=== PATIENT | female | born 2000 | race Two or more races ===

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

== ENCOUNTER → 2018-12-03 | Outpatient (CLI) | payer BC, OTHER ==
[2018-12-03 05:11] LABS: Appearance,Urine Clear (Clear); Bilirubin,Urine Negative (Negative); Blood,Urine Negative (Negative); Color,Urine Light Yellow; Glucose,Urine (UA) Negative (Negative); Ketones,Urine Negative (Negative); Leukocyte Esterase,Urine Negative (Negative); Nitrite,Urine Negative (Negative); PH, Urine 6.5 (5.0-8.0); Protein,Urine Negative (Negative); Specific Gravity,Urine 1.004 (1.001-1.035); Urobilinogen,Urine <2.0 mg/dL (<2.0)
[2018-12-03 06:51] VITALS: BP 126/74; PULSE 113; RESP 16; TEMP 98.1
--- NOTE | 2018-12-13 03:53 | P.MSEPDOC ---
Presenting Problems - Arrival Data Date of Arrival on Unit: 12/03/18 Time of Arrival on Unit: 04:25 Mode of Transport: Ambulatory - Complaint OB-Reason for Admission/Chief Complaint: Pain Comment: Patient states she was awoken at 0200 with intermittent pain, 10/10, bilaterally on her back. By the time she arrived in triage it was mild constant pain on her right lower back. Patient denies bleeding, leaking of fluid, and states she can feel move. Medical History - Information : 2 Para: 1 Term: 0 : 0 Abortions: Spontaneous or Elective: 0 Number of Living Children: 1 - Gestational Age Gestational Age by MADDI (wks/days): 25 Weeks and 3 Days Review of Systems - Review of Systems Constitutional: No problems Breast: No problems ENT: No problems Cardiovascular: No problems Respiratory: No problems Gastrointestinal: No problems Genitourinary: No problems Musculoskeletal: No problems Neurological: No problems Skin: No problems Vital Signs - Temperature Temperature: 98.1 F Temperature Source: Temporal Artery Scan - Pulse Right Brachial Pulse Rate: 113 Pulse Assessment Method: Automatic Cuff - Respirations Respiratory Rate: 16 Oxygen Delivery Method: Room Air - Blood Pressure Right Arm Blood Pressure: 126/74 Blood Pressure Mean: 91 Blood Pressure Source: Automatic Cuff Medical Screen Scoring (Pre) - Cervical Exam Dilation: Exam Deferred Effacement: Exam Deferred - Uterine Contractions Frequency: N/A Duration: N/A Intensity: N/A - Maternal Vital Signs Maternal Temperature: N/A Signs of Preeclampsia: N/A Maternal Respirations: N/A - Maternal Trauma Maternal Trauma: N/A - Assessment - Baby A Baseline FHR: 130 Heart Rate - NICHD Category: Category I (Normal) = 0 Position: N/A Station: N/A - Total Score - Baby A Total Score - Baby A: 0 - Total Score - Baby B Total Score - Baby B: 0 - Total Score - Baby C Total Score - Baby C: 0 - Level of Risk - Baby A Level of Risk - Baby A: Low (0-5) - Level of Risk - Baby B Level of Risk - Baby B: Low (0-5) - Level of Risk - Baby C Level of Risk - Baby C: Low (0-5) Physician Notification (Pre) - Physician Notified Physician Notified Date: 12/03/18 Physician Notified Time: 04:45 Physician/Practitioner Notifed:: Dr. Salomon Spoke With: Dr. Salomon New Order Received: Yes - Notification Comment Comment: RN reported reactive infant, 25 weeks 3 days, no contractions noted on the monitor. Urine appeared to have sediment in it. Dr. Salomon states to send UA and call back with results. Urine results were not significant. Order to discharge patient with instructions for patient to see this week. Patient states she is feeling much better and is in agreement with plan. Disposition - Disposition OB Disposition: Physician follow up in office, Discharge to home Discharge Date: 12/03/18 Discharge Time: 06:30 I agree with the RN Medical Screening Exam: Yes Risk & Benefit of care provided described in d/c instruction: Yes Diagnosis: LOW BACK PAIN
== END ==
LOC: FBPOP 04:25
PROVIDERS: ATTEND Obstetrics & Gynecology
DX: O99.89 Other specified diseases and conditions complicating pregnancy, childbirth and the puerperium (principal); M54.5 Low back pain; Z3A.25 25 weeks gestation of pregnancy
CPT/HCPCS: 81003

== ENCOUNTER 2019-03-25 07:18 | Emergency (ER) | payer BC, OTHER ==
[2019-03-25 07:28] VITALS: TEMP 97.9
[2019-03-25] MEDS ORDERED: SODIUM CHLORIDE 0.9% 500 ML 500 ML IV STA (07:40)
[2019-03-25] MEDS ORDERED: ONDANSETRON 4 MG/2 ML VIAL IVP STA (07:40)
[2019-03-25] MEDS ORDERED: SODIUM CHLORIDE 0.9% 1,000 ML IV STA (07:40)
[2019-03-25] MEDS ORDERED: HYDROmorphone 1 MG/ML 1 ML SYRINGE IVP STA (07:40)
[2019-03-25] MEDS ORDERED: FAMOTIDINE 20 MG/2 ML VIAL IV STA (07:41)
--- NOTE | 2019-03-25 07:49 | ED ---
General Adult HPI - General Chief complaint: Abdominal Pain Stated complaint: Rib pain/RADHA post 2 wks ago Time Seen by Provider: 03/25/19 07:29 Source: patient, RN notes reviewed Mode of arrival: wheelchair Limitations: no limitations - History of Present Illness Initial comments: Patient is a pleasant 19-year-old female presenting to the emergency Department with chest and abdominal discomfort as well as nausea and vomiting. Onset of symptoms was 3 AM. Patient has vomited 3 times. Patient still feels nauseous. Discomfort is bilateral lower ribs and epigastric region. No history of similar symptoms previously. Patient is approximately 2 weeks post out of the [facility]. No complications since that time. Patient did have secondary to placenta previa. Patient was . No fevers. No constipation or diarrhea. No pelvic pain or vaginal bleeding or discharge. - Related Data Home Medications Medication Instructions Recorded Confirmed Pnv,Calcium 72/Iron/Folic Acid 1 tab PO DAILY 02/06/17 12/03/18 [ Plus Tablet] Allergies Allergy/AdvReac Type Severity Reaction Status Date / Time No Known Allergies Allergy Verified 12/03/18 04:30 Review of Systems ROS Statement: Those systems with pertinent positive or pertinent negative responses have been documented in the HPI. ROS Other: All systems not noted in ROS Statement are negative. Constitutional: Denies: fever Eyes: Denies: eye pain ENT: Denies: ear pain Respiratory: Reports: dyspnea. Denies: cough Cardiovascular: Reports: chest pain. Denies: palpitations Endocrine: Denies: fatigue Gastrointestinal: Reports: abdominal pain, nausea, vomiting. Denies: constipation Genitourinary: Denies: dysuria Musculoskeletal: Denies: back pain Skin: Denies: rash Neurological: Denies: weakness Past Medical History Past Medical History: No Reported History History of Any Multi-Drug Resistant Organisms: None Reported Past Surgical History: No Surgical Hx Reported, Section Past Psychological History: ADD/ADHD Smoking Status: Never smoker Past Alcohol Use History: None Reported Past Drug Use History: None Reported General Exam Limitations: no limitations General appearance: alert, in no apparent distress Head exam: Present: normocephalic Eye exam: Present: normal appearance, PERRL ENT exam: Present: normal oropharynx Neck exam: Present: normal inspection Respiratory exam: Present: normal lung sounds bilaterally, chest wall tenderness (Mild tenderness bilateral anterior ribs beneath the breasts) Cardiovascular Exam: Present: regular rate, normal rhythm Expanded Peripheral pulses: 2+: Posterior Tibialis (R), Posterior Tibialis (L) GI/Abdominal exam: Present: soft, tenderness (Mild to moderate epigastric tenderness). Absent: distended, guarding, rebound, rigid, pulsatile mass Extremities exam: Present: normal inspection. Absent: pedal edema, calf tenderness Neurological exam: Present: alert Psychiatric exam: Present: normal affect, normal mood Skin exam: Present: normal color Course Vital Signs 03/25/19 07:24 Temperature 97.9 F Pulse Rate 83 Respiratory 19 Rate Blood Pressure 110/49 O2 Sat by Pulse 97 Oximetry EKG Findings - EKG Comments: EKG Findings:: Normal sinus rhythm 82. SC 154. QRS 100. QT 378. QTC 441. Normal axis. Incomplete right bundle block. No acute ST change. Medical Decision Making - Medical Decision Making Patient reevaluated and significantly improved, symptom-free. Abdomen soft and nontender. No dyspnea. Patient updated on results and need for follow-up. Patient states she does have an [employer] [employer] and primary care physician that she can do close follow-up with. - Lab Data Result diagrams: 03/25/19 07:42 03/25/19 07:42 Lab Results 03/25/19 03/25/19 03/25/19 Range/Units 07:42 07:42 07:42 WBC 10.8 H (3.8-10.6) k/uL RBC 4.49 (3.80-5.40) m/uL Hgb 10.5 L (11.4-16.0) gm/dL Hct 34.0 (34.0-46.0) % MCV 75.6 L (80.0-100.0) fL MCH 23.4 L (25.0-35.0) pg MCHC 30.9 L (31.0-37.0) g/dL RDW 14.6 (11.5-15.5) % Plt Count 505 H (150-450) k/uL Neutrophils % 76 % Lymphocytes % 16 % Monocytes % 4 % Eosinophils % 1 % Basophils % 0 % Neutrophils # 8.2 H (1.3-7.7) k/uL Lymphocytes # 1.7 (1.0-4.8) k/uL Monocytes # 0.5 (0-1.0) k/uL Eosinophils # 0.1 (0-0.7) k/uL Basophils # 0.1 (0-0.2) k/uL Hypochromasia Moderate Microcytosis Slight PT 10.1 (9.0-12.0) sec INR 1.0 (<1.2) APTT 26.5 (22.0-30.0) sec Sodium 137 (137-145) mmol/L Potassium 4.1 (3.5-5.1) mmol/L Chloride 104 (98-107) mmol/L Carbon Dioxide 22 (22-30) mmol/L Anion Gap 11 mmol/L BUN 14 (7-17) mg/dL Creatinine 0.70 (0.52-1.04) mg/dL Est GFR (CKD-EPI)AfAm >90 (>60 ml/min/1.73 sqM) Est GFR (CKD-EPI)NonAf >90 (>60 ml/min/1.73 sqM) Glucose 132 H (74-99) mg/dL Calcium 9.4 (8.4-10.2) mg/dL Total Bilirubin 0.5 (0.2-1.3) mg/dL AST 22 (14-36) U/L ALT 13 (4-34) U/L Alkaline Phosphatase 152 H (38-126) U/L Creatine Kinase 44 (30-135) U/L Troponin I (0.000-0.034) ng/mL Total Protein 7.5 (6.3-8.2) g/dL Albumin 4.0 (3.5-5.0) g/dL Amylase 65 (30-110) U/L Lipase 166 (23-300) U/L 03/25/19 Range/Units 07:42 WBC (3.8-10.6) k/uL RBC (3.80-5.40) m/uL Hgb (11.4-16.0) gm/dL Hct (34.0-46.0) % MCV (80.0-100.0) fL MCH (25.0-35.0) pg MCHC (31.0-37.0) g/dL RDW (11.5-15.5) % Plt Count (150-450) k/uL Neutrophils % % Lymphocytes % % Monocytes % % Eosinophils % % Basophils % % Neutrophils # (1.3-7.7) k/uL Lymphocytes # (1.0-4.8) k/uL Monocytes # (0-1.0) k/uL Eosinophils # (0-0.7) k/uL Basophils # (0-0.2) k/uL Hypochromasia Microcytosis PT (9.0-12.0) sec INR (<1.2) APTT (22.0-30.0) sec Sodium (137-145) mmol/L Potassium (3.5-5.1) mmol/L Chloride (98-107) mmol/L Carbon Dioxide (22-30) mmol/L Anion Gap mmol/L BUN (7-17) mg/dL Creatinine (0.52-1.04) mg/dL Est GFR (CKD-EPI)AfAm (>60 ml/min/1.73 sqM) Est GFR (CKD-EPI)NonAf (>60 ml/min/1.73 sqM) Glucose (74-99) mg/dL Calcium (8.4-10.2) mg/dL Total Bilirubin (0.2-1.3) mg/dL AST (14-36) U/L ALT (4-34) U/L Alkaline Phosphatase (38-126) U/L Creatine Kinase (30-135) U/L Troponin I <0.012 (0.000-0.034) ng/mL Total Protein (6.3-8.2) g/dL Albumin (3.5-5.0) g/dL Amylase (30-110) U/L Lipase (23-300) U/L - Radiology Data Radiology results: report reviewed (Computed tomography scan of the abdomen pelvis shows nonspecific findings, possible appearance. CT angios chest shows no gross CT evidence of pulmonary embolism. Small hiatal hernia. Possible mild chronic calcification versus phase of contrast.) Disposition Clinical Impression: Abdominal pain, Vomiting Disposition: HOME SELF-CARE Condition: Stable Instructions (If sedation given, give patient instructions): Abdominal Pain (ED), Acute Nausea and Vomiting (ED), Dyspnea (ED) Additional Instructions: Please follow-up with your primary care physician and [facility] this week. Return for difficulty in breathing, increased pain, fevers, worsening symptoms or other concerns. Is patient prescribed a controlled substance at d/c from ED?: No Referrals: Nonstaff,Physician [Primary Care Provider] - 1-2 days Time of Disposition: 09:27
[2019-03-25 08:01] LABS: Basophils # (A) 0.1 k/uL (0-0.2); Basophils % (A) 0 %; Eosinophils # (A) 0.1 k/uL (0-0.7); Eosinophils % (A) 1 %; HGB 10.5 gm/dL (11.4-16.0); Hypochromasia Moderate; Lymphocytes # (A) 1.7 k/uL (1.0-4.8); Lymphocytes % (A) 16 %; MCH 23.4 pg (25.0-35.0); MCHC 30.9 g/dL (31.0-37.0); MCV 75.6 fL (80.0-100.0); Mean Platelet Volume 6.8; Microcytosis Slight; Monocytes # (A) 0.5 k/uL (0-1.0); Monocytes % (A) 4 %; Neutrophils # (A) 8.2 k/uL (1.3-7.7); Neutrophils % (A) 76 %; Platelet Count 505 k/uL (150-450); RBC 4.49 m/uL (3.80-5.40); RDW 14.6 % (11.5-15.5); WBC 10.8 k/uL (3.8-10.6)
[2019-03-25 08:08] LABS: ALT 13 U/L (4-34); AST 22 U/L (14-36); African American GFR (CKD) >90 (>60 ml/min/1.73 sqM); Alkaline Phosphatase 152 U/L (38-126); Amylase 65 U/L (30-110); Anion Gap 11 mmol/L; Blood Urea Nitrogen 14 mg/dL (7-17); Calcium 9.4 mg/dL (8.4-10.2); Carbon Dioxide 22 mmol/L (22-30); Chloride 104 mmol/L (98-107); Creatine Kinase 44 U/L (30-135); Glucose 132 mg/dL (74-99); Non-African American GFR(CKD) >90 (>60 ml/min/1.73 sqM); Potassium 4.1 mmol/L (3.5-5.1); Sodium 137 mmol/L (137-145); Total Bilirubin 0.5 mg/dL (0.2-1.3); Total Protein 7.5 g/dL (6.3-8.2)
[2019-03-25 08:22] LABS: Partial Thromboplastin Time 26.5 sec (22.0-30.0); Prothrombin Time 10.1 sec (9.0-12.0)
--- NOTE | 2019-03-25 08:50 | CT ---
EXAMINATION TYPE: CT angio chest DATE OF EXAM: 03/25/2019 COMPARISON: NONE HISTORY: SOB, pain. Recent . CT DLP: 345.9 mGycm. Automated Exposure Control for Dose Reduction was Utilized. CONTRAST: CTA scan of the thorax is performed with IV Contrast, patient injected with 100 mL of Isovue 370, pul monary embolism protocol. MIP Images are created on CT scanner and reviewed. FINDINGS: LUNGS: Subsegmental multifocal left dependent atelectasis. The lungs are grossly clear, there is no c oncerning parenchymal mass or nodule identified. There is no pleural effusion or pneumothorax seen. The tracheobronchial tree is patent. MEDIASTINUM: There is suboptimal enhancement of the pulmonary artery and its branches, however there is no gross CT evidence for pulmonary embolism. There are no greater than 1 cm hilar or mediastinal lymph nodes. Questionable mild coronary calcifications versus phase of contrast in the left main davie nary. No cardiomegaly or pericardial effusion is seen. Probable residual thymic tissue in the anterio r superior mediastinum. OTHER: Small hiatal hernia note. Lactational changes in the breasts are seen. Small splenule seen ad jacent to the [place] spleen. IMPRESSION: 1. Slightly suboptimal bolus, however there is no gross CT evidence of pulmonary embolus. 2. Focal left basilar subsegmental atelectasis. 3. Small hiatal hernia. 4. Possible mild coronary calcifications versus phase of contrast in the left main coronary.
--- NOTE | 2019-03-25 08:53 | CT ---
EXAMINATION TYPE: CT abdomen pelvis w con DATE OF EXAM: 03/25/2019 COMPARISON: None HISTORY: SOB, upper abd pain CT DLP: 1366.5 mGycm Automated exposure control for dose reduction was used. TECHNIQUE: Helical acquisition of images from the lung bases through the pelvis have been completed. CONTRAST: Performed without Oral Contrast and with IV Contrast, patient injected with 100 mL of Isovue 370. FINDINGS: Postop change noted to the anterior abdominal wall inferiorly. LUNG BASES: No significant abnormality is appreciated. AORTA: No significant abnormality is appreciated. LIVER/GB: The liver is enlarged. Gallbladder is somewhat distended. PANCREAS: No significant abnormality is seen. SPLEEN: Enlarged ADRENALS: No significant abnormality is seen. KIDNEYS: No significant abnormality is seen. REPRODUCTIVE ORGANS: Uterus shows some low-attenuation. Uterus appears enlarged. Possibly some fluid of long endometrial canal with some punctate foci of air. Adnexal structures within normal limits. BOWEL: No significant abnormality is seen. Appendix shows luminal air, no evident inflammatory beth e FREE AIR: No Free Air visible. ASCITES: None visible. PELVIC ADENOPATHY: None visualized. RETROPERITONEAL ADENOPATHY: No Retroperitoneal Adenopathy visible. URINARY BLADDER: No significant abnormality is seen. OSSEOUS STRUCTURES: No significant abnormality is seen. IMPRESSION: CORRELATE FOR POSSIBLE ENDOMETRITIS, MYOMETRITIS, FINDINGS NONSPECIFIC AND MAY BE DUE TO A PPEARANCE.
[2019-03-25 09:45] VITALS: BP 100/51; PULSE 88; RESP 18
== END 2019-03-25 09:39 | disposition home or self-care (01) ==
LOC: EC 07:18
DX: R10.816 Epigastric abdominal tenderness (principal); R11.2 Nausea with vomiting, unspecified; Z98.890 Other specified postprocedural states
CPT/HCPCS: 36415; 93005; 80053; 82150; 82550; 83690; 84484; 85025; 85610; 85730; 71275; 74177; 96374; 96375 ×2; 96361 ×2; 99284; J2405; J1170; Q9967

== ENCOUNTER 2019-04-01 04:27 | Inpatient (IN) | payer BC, OTHER ==
[2019-04-01] MEDS ORDERED: SODIUM CHLORIDE 0.9% 1,000 ML IV STA (05:13)
[2019-04-01] MEDS ORDERED: MORPHINE SULFATE 4 MG/ML SYRINGE IVP STA ×2 (05:19→07:24)
[2019-04-01] MEDS ORDERED: ONDANSETRON 4 MG/2 ML VIAL IVP STA (05:20)
--- NOTE | 2019-04-01 05:23 | ED ---
Abdominal Pain HPI - General Chief Complaint: Abdominal Pain Stated Complaint: Abd Pain Time Seen by Provider: 04/01/19 04:56 Source: patient Mode of arrival: ambulatory - History of Present Illness Initial Comments: Gualberto is a pleasant 19-year-old female currently 3 weeks . Patient presents the ER today for reevaluation of right upper quadrant abdominal pain. Patient's been explained this pain pretty consistently since delivery of her child. Pain is worse after eating. Pain is described as a sharp stabbing the right upper quadrant. Patient's last meal was last night she developed worsening pain after the meal that the pain is persisted throughout the night p revented her from sleeping and is associated with nausea with no vomiting. Patient is not currently breast-feeding. Patient does state that she's been evaluated in the ER she had an abdominal CT and CT to evaluate her lungs and were negative. She's actually follow-up with her primary care physician and has not gotten any answers was causing her pain. Patient reports she still subjective fevers and chills for the past couple of days. - Related Data Home Medications Medication Instructions Recorded Confirmed Dextroamphetamine/Amphetamine 20 mg PO TID 04/01/19 04/01/19 [Adderall] Sertraline HCl [Zoloft] 100 mg PO DAILY 04/01/19 04/01/19 busPIRone HCl [Buspar] 10 mg PO DAILY 04/01/19 04/01/19 Allergies Allergy/AdvReac Type Severity Reaction Status Date / Time No Known Allergies Allergy Verified 04/01/19 08:06 Review of Systems ROS Statement: Those systems with pertinent positive or pertinent negative responses have been documented in the HPI. ROS Other: All systems not noted in ROS Statement are negative. Past Medical History Past Medical History: No Reported History History of Any Multi-Drug Resistant Organisms: None Reported Past Surgical History: No Surgical Hx Reported, Section Past Psychological History: No Psychological Hx Reported Smoking Status: Never smoker Past Alcohol Use History: None Reported Past Drug Use History: None Reported General Exam - General Exam Comments Initial Comments: Physical Exam GENERAL: Uncomfortable appearing female HENT: Normocephalic, Atraumatic. EYES: PERRL, EOMI PULMONARY: Unlabored respirations. No audible rales rhonchi or wheezing was noted. CARDIOVASCULAR: There is a regular rate and rhythm without any murmurs gallops or rubs. ABDOMEN: Soft, normal bowel sounds. Tenderness to palpation right upper quadrant positive De Leon sign SKIN: Well-healing surgical incision on the lower abdomen consistent with recent section : Deferred NEUROLOGIC: Patient is alert and oriented x3. Moving all extremities spontaneously MUSCULOSKELETAL: Normal extremities with adequate strength and full range of motion. No lower extremity swelling or edema. No calf tenderness. PSYCHIATRIC: Normal psychiatric evaluation. Course Vital Signs 04/01/19 04/01/19 04/01/19 04:30 05:03 06:00 Temperature 97.6 F 98.4 F 97.9 F Pulse Rate 95 67 97 Respiratory 23 22 16 Rate Blood Pressure 98/65 98/73 111/70 O2 Sat by Pulse 100 100 98 Oximetry 04/01/19 07:00 Temperature 98.5 F Pulse Rate 68 Respiratory 19 Rate Blood Pressure 120/64 O2 Sat by Pulse 98 Oximetry Medical Decision Making - Medical Decision Making Patient was seen and evaluated, history is obtained from the patient History and physical exam are concerning for gallbladder pathology Labs and pain medications were ordered Labs resulted with evidence of leukocytosis elevated transaminases elevated amylase and lipase concerning for possible gallbladder pancreatitis versus pa ncreatitis secondary to gallbladder dysfunction Ultrasound was obtained and revealed a normal common bile duct but otherwise signs of acute cholecystitis Additional IV fluids anti-emetics pain medications were ordered She care was discussed with the surgeon conductor road freight Dr. Taylor who accepts the adm ission for acute cholecystitis with pancreatitis, recommend IV fluids pain management and antibiotics. - Lab Data Result diagrams: 04/01/19 05:30 04/01/19 05:30 Lab Results 04/01/19 04/01/19 04/01/19 Range/Units 05:30 05:30 05:52 WBC 15.1 H (3.8-10.6) k/uL RBC 4.81 (3.80-5.40) m/uL Hgb 11.0 L (11.4-16.0) gm/dL Hct 36.0 (34.0-46.0) % MCV 74.9 L (80.0-100.0) fL MCH 22.9 L (25.0-35.0) pg MCHC 30.6 L (31.0-37.0) g/dL RDW 14.8 (11.5-15.5) % Plt Count 626 H (150-450) k/uL Neutrophils % 82 % Lymphocytes % 11 % Monocytes % 4 % Eosinophils % 1 % Basophils % 0 % Neutrophils # 12.5 H (1.3-7.7) k/uL Lymphocytes # 1.7 (1.0-4.8) k/uL Monocytes # 0.6 (0-1.0) k/uL Eosinophils # 0.1 (0-0.7) k/uL Basophils # 0.1 (0-0.2) k/uL Hypochromasia Moderate Microcytosis Slight Sodium 140 (137-145) mmol/L Potassium 4.4 (3.5-5.1) mmol/L Chloride 103 (98-107) mmol/L Carbon Dioxide 27 (22-30) mmol/L Anion Gap 10 mmol/L BUN 15 (7-17) mg/dL Creatinine 0.78 (0.52-1.04) mg/dL Est GFR (CKD-EPI)AfAm >90 (>60 ml/min/1.73 sqM) Est GFR (CKD-EPI)NonAf >90 (>60 ml/min/1.73 sqM) Glucose 100 H (74-99) mg/dL Calcium 9.6 (8.4-10.2) mg/dL Total Bilirubin 0.5 (0.2-1.3) mg/dL AST 113 H (14-36) U/L ALT 37 H (4-34) U/L Alkaline Phosphatase 221 H (38-126) U/L Total Protein 7.8 (6.3-8.2) g/dL Albumin 4.4 (3.5-5.0) g/dL Amylase 206 H (30-110) U/L Lipase 2487 H (23-300) U/L Urine Color Yellow Urine Appearance Clear (Clear) Urine pH 6.0 (5.0-8.0) Ur Specific [place] 1.015 (1.001-1.035) Urine Protein Negative (Negative) Urine Glucose (UA) Negative (Negative) Urine Ketones Negative (Negative) Urine Blood Negative (Negative) Urine Nitrite Negative (Negative) Urine Bilirubin Negative (Negative) Urine Urobilinogen 2.0 (<2.0) mg/dL Ur Leukocyte Esterase Small (Negative) Urine RBC 2 (0-5) /hpf Urine WBC 5 (0-5) /hpf Ur Squamous Epith Cells 1 (0-4) /hpf Urine Mucus Moderate H (None) /hpf Disposition Clinical Impression: Acute cholecystitis, Pancreatitis Disposition: ADMITTED IP TO THIS HOSP Condition: Stable Is patient prescribed a controlled substance at d/c from ED?: No Referrals: Silviano Cunningham DO [Primary Care Provider] - 1-2 days Rhoda Bradley MD [STAFF PHYSICIAN] - 1-2 days
[2019-04-01 05:45] LABS: Basophils # (A) 0.1 k/uL (0-0.2); Basophils % (A) 0 %; Eosinophils # (A) 0.1 k/uL (0-0.7); Eosinophils % (A) 1 %; Hypochromasia Moderate; Lymphocytes # (A) 1.7 k/uL (1.0-4.8); Lymphocytes % (A) 11 %; MCH 22.9 pg (25.0-35.0); MCHC 30.6 g/dL (31.0-37.0); MCV 74.9 fL (80.0-100.0); Mean Platelet Volume 6.6; Microcytosis Slight; Monocytes # (A) 0.6 k/uL (0-1.0); Monocytes % (A) 4 %; Neutrophils # (A) 12.5 k/uL (1.3-7.7); Neutrophils % (A) 82 %; Platelet Count 626 k/uL (150-450); RBC 4.81 m/uL (3.80-5.40); RDW 14.8 % (11.5-15.5); WBC 15.1 k/uL (3.8-10.6)
[2019-04-01 06:07] LABS: ALT 37 U/L (4-34); AST 113 U/L (14-36); African American GFR (CKD) >90 (>60 ml/min/1.73 sqM); Albumin 4.4 g/dL (3.5-5.0); Alkaline Phosphatase 221 U/L (38-126); Amylase 206 U/L (30-110); Anion Gap 10 mmol/L; Blood Urea Nitrogen 15 mg/dL (7-17); Calcium 9.6 mg/dL (8.4-10.2); Carbon Dioxide 27 mmol/L (22-30); Chloride 103 mmol/L (98-107); Glucose 100 mg/dL (74-99); Non-African American GFR(CKD) >90 (>60 ml/min/1.73 sqM); Potassium 4.4 mmol/L (3.5-5.1); Sodium 140 mmol/L (137-145); Total Bilirubin 0.5 mg/dL (0.2-1.3); Total Protein 7.8 g/dL (6.3-8.2)
[2019-04-01 06:21] LABS: Appearance,Urine Clear (Clear); Color,Urine Yellow; Protein,Urine Negative (Negative); Specific Gravity,Urine 1.015 (1.001-1.035)
[2019-04-01 06:22] LABS: Bilirubin,Urine Negative (Negative); Blood,Urine Negative (Negative); Glucose,Urine (UA) Negative (Negative); Ketones,Urine Negative (Negative); Leukocyte Esterase,Urine Small (Negative); Nitrite,Urine Negative (Negative)
[2019-04-01 06:29] LABS: Mucus,Urine Moderate /hpf; RBC,Urine 2 /hpf (0-5); Squamous Epithelial Cell,Urine 1 /hpf (0-4); WBC,Urine 5 /hpf (0-5)
--- NOTE | 2019-04-01 07:22 | US ---
EXAMINATION TYPE: US gallbladder DATE OF EXAM: 04/01/2019 COMPARISON: Correlation CT 03/25/2019 CLINICAL HISTORY: 19-year-old female RUQ abdominal pain, concern for gallstone pancreat. ABD pain, ab normal LFT's TECHNIQUE: Multiple sonographic images of the right upper quadrant are obtained. FINDINGS: EXAM MEASUREMENTS: Liver Length: 20.0 cm Gallbladder Wall: 0.3 cm CBD: 0.4 cm Right Kidney: 11.5 x 4.2 x 4.9 cm Pancreas: wnl Liver: Enlarged but with overall homogeneous echotexture. No focal lesion. Gallbladder: Multiple, mobile gallstones. Abnormal gallbladder distention, wall thickening, or peric holecystic fluid. Evidence for sonographic De Leon's sign: Yes CBD: wnl Right Kidney: wnl, lower pole gassed out. No hydronephrosis. IMPRESSION: 1. Multiple small layering gallstones. No ancillary imaging findings of acute cholecystitis. However, as sonographic De Leon sign is reported positive further clinical correlation is recommended. Conside r HIDA scan with ejection fraction if indicated. 2. Hepatomegaly (20.0 cm). 3. No biliary ductal dilatation.
[2019-04-01] MEDS ORDERED: SODIUM CHLORIDE 0.9% 1,000 ML IV ONE (07:24)
[2019-04-01] MEDS ORDERED: METOCLOPRAMIDE 5 MG/ML 2 ML VIAL IVP STA (07:24)
[2019-04-01] MEDS ORDERED: diphenhydrAMINE 50 MG/ML 1 ML VIAL IVP STA (07:24)
[2019-04-01] MEDS ORDERED: PIPERACILLIN-TAZOBACTAM 3.375 GM in SODIUM CHLORIDE 0.9% 100 ML IVPB STA (07:49)
[2019-04-01] MEDS ORDERED: NALOXONE 0.4 MG/ML 1 ML VIAL IV PRN (07:51)
[2019-04-01] MEDS: SODIUM CHLORIDE 0.9% 1,000 ML IV SCH ×4 (08:36→23:41)
--- NOTE | 2019-04-01 10:57 | P.GSHP ---
History of Present Illness H&P Date: 04/01/19 Chief Complaint: abdominal pain CHIEF COMPLAINT: Abdominal pain HISTORY OF PRESENT ILLNESS: 19-year-old female who is 3 weeks who presented to the emergency room with a chief complaint of abdominal pain. Patient reports her pain is in the epigastric region and right upper quadrant and has been present for the past couple weeks. She reports nausea. Denies vomiting. Denies fever or chills. PAST MEDICAL HISTORY: See list. PAST SURGICAL HISTORY: See list. SOCIAL HISTORY: No illicit drug use. REVIEW OF SYSTEMS: CONSTITUTIONAL: Denies fever or chills. 3 weeks . HEENT: Denies blurred vision, vision changes, or eye pain. Denies hemoptysis CARDIOVASCULAR: Denies chest pain or pressure. RESPIRATORY: No shortness of breath. GASTROINTESTINAL: Refer to [facility] for pertinent findings HEMATOLOGIC: Denies bleeding disorders. GENITOURINARY: Denies any blood in urine. SKIN: Denies pruitis. Denies rash. PHYSICAL EXAM: VITAL SIGNS: Reviewed. GENERAL: Well-developed in no acute distress. HEENT: No sclera icterus. Extraocular movements grossly intact. Moist buccal mucosa. Head is atraumatic, normocephalic. ABDOMEN: Soft. Nondistended. scar healing nicely without drainage or signs of infection. Tenderness upon palpation of the epigastric region and right upper quadrant. NEUROLOGIC: Alert and oriented. Cranial nerves II through XII grossly intact. LABORATORY DATA: WBC 15.1. Hemoglobin 11.0. Platelet count 626. Total bilirubin 0.5. AST 113. ALT 37. Alkaline phosphatase 221. Amylase 206. Lipase 2487. IMAGING: Ultrasound gallbladder: Multiple small layering gallstones. No ancillary imagi ng findings of acute cholecystitis. Positive sonographic De Leon sign. Hepatomegaly. No biliary ductal dilation. ASSESSMENT: 1. Abdominal pain 2. Cholelithiasis 3. Pancreatitis 4. Transaminitis 5. Leukocytosis 6. Status post , 3 weeks PLAN: NPO. Continue IV fluids. Monitor labs Patient to undergo laparoscopic cholecystectomy today with Dr. Taylor Nurse practitioner note has been reviewed by physician. Signing provider agrees with the documented findings, assessment, and plan of care. Past Medical History Past Medical History: No Reported History History of Any Multi-Drug Resistant Organisms: None Reported Past Surgical History: No Surgical Hx Reported, Section Past Psychological History: No Psychological Hx Reported Smoking Status: Never smoker Past Alcohol Use History: None Reported Past Drug Use History: None Reported Medications and Allergies Home Medications Medication Instructions Recorded Confirmed Type Dextroamphetamine/Amphetamine 20 mg PO TID 04/01/19 04/01/19 History [Adderall] Sertraline HCl [Zoloft] 100 mg PO DAILY 04/01/19 04/01/19 History busPIRone HCl [Buspar] 10 mg PO DAILY 04/01/19 04/01/19 History Allergies Allergy/AdvReac Type Severity Reaction Status Date / Time No Known Allergies Allergy Verified 04/01/19 08:06 Surgical - Exam Vital Signs Temp Pulse Resp BP Pulse Ox 97.6 F 95 23 98/65 100 04/01/19 04:30 04/01/19 04:30 04/01/19 04:30 04/01/19 04:30 04/01/19 04:30 Results - Labs 04/01/19 05:30 04/01/19 05:30 Abnormal Lab Results - Last 24 Hours (Table) 04/01/19 04/01/19 04/01/19 Range/Units 05:30 05:30 05:52 WBC 15.1 H (3.8-10.6) k/uL Hgb 11.0 L (11.4-16.0) gm/dL MCV 74.9 L (80.0-100.0) fL MCH 22.9 L (25.0-35.0) pg MCHC 30.6 L (31.0-37.0) g/dL Plt Count 626 H (150-450) k/uL Neutrophils # 12.5 H (1.3-7.7) k/uL Glucose 100 H (74-99) mg/dL AST 113 H (14-36) U/L ALT 37 H (4-34) U/L Alkaline Phosphatase 221 H (38-126) U/L Amylase 206 H (30-110) U/L Lipase 2487 H (23-300) U/L Urine Mucus Moderate H (None) /hpf Diabetes panel 04/01/19 Range/Units 05:30 Sodium 140 (137-145) mmol/L Potassium 4.4 (3.5-5.1) mmol/L Chloride 103 (98-107) mmol/L Carbon Dioxide 27 (22-30) mmol/L BUN 15 (7-17) mg/dL Creatinine 0.78 (0.52-1.04) mg/dL Glucose 100 H (74-99) mg/dL Calcium 9.6 (8.4-10.2) mg/dL AST 113 H (14-36) U/L ALT 37 H (4-34) U/L Alkaline Phosphatase 221 H (38-126) U/L Total Protein 7.8 (6.3-8.2) g/dL Albumin 4.4 (3.5-5.0) g/dL Calcium panel 04/01/19 Range/Units 05:30 Calcium 9.6 (8.4-10.2) mg/dL Albumin 4.4 (3.5-5.0) g/dL Pituitary panel 04/01/19 Range/Units 05:30 Sodium 140 (137-145) mmol/L Potassium 4.4 (3.5-5.1) mmol/L Chloride 103 (98-107) mmol/L Carbon Dioxide 27 (22-30) mmol/L BUN 15 (7-17) mg/dL Creatinine 0.78 (0.52-1.04) mg/dL Glucose 100 H (74-99) mg/dL Calcium 9.6 (8.4-10.2) mg/dL Adrenal panel 04/01/19 Range/Units 05:30 Sodium 140 (137-145) mmol/L Potassium 4.4 (3.5-5.1) mmol/L Chloride 103 (98-107) mmol/L Carbon Dioxide 27 (22-30) mmol/L BUN 15 (7-17) mg/dL Creatinine 0.78 (0.52-1.04) mg/dL Glucose 100 H (74-99) mg/dL Calcium 9.6 (8.4-10.2) mg/dL Total Bilirubin 0.5 (0.2-1.3) mg/dL AST 113 H (14-36) U/L ALT 37 H (4-34) U/L Alkaline Phosphatase 221 H (38-126) U/L Total Protein 7.8 (6.3-8.2) g/dL Albumin 4.4 (3.5-5.0) g/dL
[2019-04-01] MEDS ORDERED: IV FLUID CONTINUATION 1,000 ML IV ONE (11:10)
[2019-04-01] MEDS ORDERED: HEPARIN SODIUM,PORCINE 5,000 UNIT/ML 1 ML VIAL SQ ONE (11:19)
[2019-04-01] MEDS ORDERED: ROCURONIUM BROMIDE 10 MG/ML 5 ML VIAL IV ONE (11:49)
[2019-04-01] MEDS ORDERED: SUCCINYLCHOLINE CHLORIDE 100 MG/5 ML SYR IV ONE (11:49)
[2019-04-01] MEDS ORDERED: fentaNYL (PF) 50 MCG/ML 2 ML AMP ONE (11:49)
[2019-04-01] MEDS ORDERED: GLYCOPYRROLATE 0.2 MG/ML 2 ML VIAL ONE (11:49)
[2019-04-01] MEDS ORDERED: NEOSTIGMINE 1 MG/ML 10 ML VIAL ONE (11:49)
[2019-04-01] MEDS ORDERED: PROPOFOL 10 MG/ML 20 ML VIAL IV ONE (11:49)
[2019-04-01] MEDS ORDERED: MIDAZOLAM 2 MG/2 ML VIAL ONE (11:49)
[2019-04-01] MEDS ORDERED: KETOROLAC 30 MG/ML 1 ML VIAL ONE (11:49)
[2019-04-01] MEDS ORDERED: LIDOCAINE 1% INJ 10MG/ML (20 ML MDV) ONE (11:49)
[2019-04-01] MEDS ORDERED: SODIUM CHLORIDE 0.9% 100 ML with ceFAZolin 2,000 MG IV ONE ×2 (11:54)
[2019-04-01] MEDS ORDERED: BUPIVACAIN-EPI 0.5%-1:200,000 30 ML VIAL SQ ONE ×2 (12:16→12:19)
--- NOTE | 2019-04-01 12:39 | P.OP ---
Date of Procedure: 04/01/19 Preoperative Diagnosis: Cholecystitis Postoperative Diagnosis: Cholecystitis Cholelithiasis Procedure(s) Performed: Laparoscopic cholecystectomy Anesthesia: ROWAN Surgeon: Terrance Taylor Estimated Blood Loss (ml): 5 Pathology: other (Gallbladder) Condition: stable Disposition: PACU Description of Procedure: The patient was placed on the operating table. The patient received a general endotracheal tube anesthesia. The patients abdomen was prepped and draped in the usual sterile fashion. Through an infraumbilical stab incision, the fascia of the anterior abdominal wall was grasped with a pair of Kochers and then the Veress needle was placed in the peritoneal cavity. Position of the Veress needle was confirmed with positive drop test. The abdomen was then insufflated. After adequate insufflation, the 10 mm trocar was placed in the peritoneal cavity. Following this the laparoscope was placed in the peritoneal cavity. The patient was placed in the head-up, right side up position and then a 5 mm trocar was placed in the right lateral and right subcostal position under direct visualization. A 8 mm trocar was placed in the epigastric position. The gallbladder was grasped in the fundus and infundibulum. Traction on the gallbladder was placed in the lateral and the cephalad positions. The triangle of Calot was visualized.. The cystic duct was bluntly dissected until the union of the cystic duct and common bile duct was seen. A critical view of safety was achieved. The cystic duct was then divided and sealed with the Harmonic scissors. A PDS Endoloop was then placed throughout the cystic duct stump. The cystic artery divided and sealed with the Harmonic scissors. The gallbladder was then removed from the liver bed using Harmonic scissors. The gallbladder was then extracted through the epigastric port site. Operative field was checked for any bleeding spots and Harmonic scissors was used to coagulate the liver bed. The abdomen was irrigated. The trocars were removed. The skin was closed using interrupted 3-0 Vicryl suture. Dermabond dressing were applied. The patient tolerated the procedure well.
[2019-04-01] MEDS ORDERED: LACTATED RINGERS 1,000 ML IV ONE (12:41)
[2019-04-01] MEDS: ONDANSETRON 4 MG/2 ML VIAL IVP PRN (13:06)
[2019-04-01] MEDS ORDERED: HYDROmorphone 0.5 MG/0.5 ML SYRINGE IVP ONE (13:06)
[2019-04-01] MEDS: MORPHINE SULFATE 4 MG/ML SYRINGE IV PRN ×2 (15:02→20:36)
[2019-04-01] MEDS: HYDROmorphone 0.5 MG/0.5 ML SYRINGE IVP PRN ×2 (18:01→23:45)
[2019-04-01 23:45] VITALS: RESP 18
[2019-04-02] MEDS: SODIUM CHLORIDE 0.9% 1,000 ML IV SCH (04:52)
[2019-04-02] MEDS: MORPHINE SULFATE 4 MG/ML SYRINGE IV PRN ×2 (04:53→10:30)
[2019-04-02 07:40] LABS: Basophils % (A) 0 %; Eosinophils # (A) 0.1 k/uL (0-0.7); Eosinophils % (A) 1 %; HCT 32.6 % (34.0-46.0); HGB 9.6 gm/dL (11.4-16.0); Hypochromasia Marked; Lymphocytes # (A) 2.1 k/uL (1.0-4.8); Lymphocytes % (A) 27 %; MCH 22.9 pg (25.0-35.0); MCHC 29.5 g/dL (31.0-37.0); MCV 77.7 fL (80.0-100.0); Mean Platelet Volume 6.6; Monocytes # (A) 0.3 k/uL (0-1.0); Monocytes % (A) 4 %; Neutrophils # (A) 5.2 k/uL (1.3-7.7); Neutrophils % (A) 66 %; Platelet Count 605 k/uL (150-450); RDW 14.7 % (11.5-15.5); WBC 7.9 k/uL (3.8-10.6)
[2019-04-02 07:50] LABS: ALT 69 U/L (4-34); AST 98 U/L (14-36); African American GFR (CKD) >90 (>60 ml/min/1.73 sqM); Albumin 3.4 g/dL (3.5-5.0); Alkaline Phosphatase 244 U/L (38-126); Anion Gap 5 mmol/L; Blood Urea Nitrogen 7 mg/dL (7-17); Carbon Dioxide 27 mmol/L (22-30); Chloride 107 mmol/L (98-107); Glucose 82 mg/dL (74-99); Non-African American GFR(CKD) >90 (>60 ml/min/1.73 sqM); Potassium 4.4 mmol/L (3.5-5.1); Sodium 139 mmol/L (137-145); Total Bilirubin 0.4 mg/dL (0.2-1.3); Total Protein 6.5 g/dL (6.3-8.2)
[2019-04-02 08:10] VITALS: BP 109/61; PULSE 72; TEMP 98.5
[2019-04-02] MEDS: ONDANSETRON 4 MG/2 ML VIAL IVP PRN (10:46)
[2019-04-02] MEDS ORDERED: HYDROcodone/APAP 5-325MG 1 EACH TAB PO PRN (11:07)
--- NOTE | 2019-04-02 13:53 | P.DS ---
Providers Date of admission: 04/01/19 08:43 Expected date of discharge: 04/02/19 Attending physician: Terrance Taylor Primary care physician: Silviano Cunningham Hospital Course: 19-year-old female who is 3 weeks who presented to the emergency room with a chief complaint of abdominal pain. Patient was found to have cholelithiasis and pancreatitis. Patient underwent laparoscopic cholecystectomy with Dr. Taylor. Patient is doing well postoperatively without any immediate complications. Vital signs are stable. He is controlled on oral medications. Tolerating diet without nausea or vomiting. Laboratory data has improved. She is stable for discharge home today per Dr. Taylor. Please see EMR for further hospital course details. Discharge Diagnosis: 1. Abdominal pain 2. Cholelithiasis 3. Pancreatitis 4. Transaminitis 5. Leukocytosis 6. Status post , 3 weeks Nurse practitioner note has been reviewed by physician. Signing provider agrees with the documented findings, assessment, and plan of care. Patient Condition at Discharge: Stable Plan - Discharge Summary New Discharge Prescriptions: New Hydrocodone/Acetaminophen [[place] 5-325] 1 tab PO Q6HR PRN #10 tab PRN Reason: Pain No Action busPIRone HCl [Buspar] 10 mg PO DAILY Sertraline HCl [Zoloft] 100 mg PO DAILY Dextroamphetamine/Amphetamine [Adderall] 20 mg PO TID Discharge Medication List Dextroamphetamine/Amphetamine [Adderall] 20 mg PO TID 04/01/19 [History] Sertraline HCl [Zoloft] 100 mg PO DAILY 04/01/19 [History] busPIRone HCl [Buspar] 10 mg PO DAILY 04/01/19 [History] Hydrocodone/Acetaminophen [[place] 5-325] 1 tab PO Q6HR PRN #10 tab 04/02/19 [Rx] Follow up Appointment(s)/Referral(s): Silviano Cunningham DO [Primary Care Provider] - 1-2 days Terrance Taylor MD [STAFF PHYSICIAN] - 1 Week Activity/Diet/Wound Care/Special Instructions: No driving while taking [place] No lifting over 10 pounds You may shower. No soaking or tub baths Very light activity until you are reevaluated at your follow up appointment with your surgeon
== END 2019-04-02 15:05 | disposition home or self-care (01) | DRG 769 ==
LOC: EC 04:27 → 4FBP 08:43 → OBSVTOIN 08:43
PROVIDERS: ADMIT Surgery; ATTEND Surgery
PROC: 0FT44ZZ Resection of Gallbladder, Percutaneous Endoscopic Approach (ICD-10-PCS; principal; 2019-04-01 07:30)
DX: O99.63 Diseases of the digestive system complicating the puerperium (principal); K85.90 Acute pancreatitis without necrosis or infection, unspecified; K80.12 Calculus of gallbladder with acute and chronic cholecystitis without obstruction; Z79.899 Other long term (current) drug therapy; Z98.891 History of uterine scar from previous surgery
CPT/HCPCS: 36415; 76705; 80053; 81001; 81025; 82150; 83690; 85025; 87040; 88304; 93005; 96361; 96365; 96375; 96376; 99285

== ENCOUNTER 2020-11-11 12:28 | Emergency (ER) | payer BC, OTHER ==
[2020-11-11 12:32] VITALS: RESP 18
[2020-11-11] MEDS ORDERED: KETOROLAC 15 MG/ML 1 ML VIAL IVP STA (13:30)
[2020-11-11] MEDS ORDERED: SODIUM CHLORIDE 0.9% 500 ML 500 ML IV STA (13:30)
[2020-11-11 13:58] LABS: Appearance,Urine Cloudy (Clear); Bilirubin,Urine Negative (Negative); Blood,Urine Small (Negative); Calcium Oxalate Crystals,Urine Moderate /hpf; Color,Urine Yellow; Glucose,Urine (UA) Negative (Negative); Ketones,Urine Trace (Negative); Leukocyte Esterase,Urine Negative (Negative); Mucus,Urine Few /hpf; Nitrite,Urine Negative (Negative); Protein,Urine 1+ (Negative); RBC,Urine 1 /hpf (0-5); Specific Gravity,Urine 1.033 (1.001-1.035); Squamous Epithelial Cell,Urine 5 /hpf (0-4); WBC,Urine 2 /hpf (0-5)
[2020-11-11 14:20] LABS: ALT 11 U/L (4-34); AST 22 U/L (14-36); African American GFR (CKD) >90 (>60 ml/min/1.73 sqM); Albumin 4.8 g/dL (3.5-5.0); Alkaline Phosphatase 89 U/L (38-126); Anion Gap 11 mmol/L; Blood Urea Nitrogen 8 mg/dL (7-17); Calcium 9.8 mg/dL (8.4-10.2); Carbon Dioxide 26 mmol/L (22-30); Chloride 103 mmol/L (98-107); Glucose 95 mg/dL (74-99); Non-African American GFR(CKD) >90 (>60 ml/min/1.73 sqM); Potassium 3.8 mmol/L (3.5-5.1); Sodium 140 mmol/L (137-145); Total Bilirubin 0.5 mg/dL (0.2-1.3)
[2020-11-11 14:53] LABS: Basophils % (A) 1 %; Eosinophils # (A) 0.1 k/uL (0-0.7); Eosinophils % (A) 1 %; HCT 44.5 % (34.0-46.0); HGB 15.2 gm/dL (11.4-16.0); Lymphocytes # (A) 1.7 k/uL (1.0-4.8); Lymphocytes % (A) 24 %; MCH 30.4 pg (25.0-35.0); MCHC 34.2 g/dL (31.0-37.0); MCV 89.1 fL (80.0-100.0); Mean Platelet Volume 6.7; Monocytes # (A) 0.5 k/uL (0-1.0); Monocytes % (A) 7 %; Neutrophils # (A) 4.6 k/uL (1.3-7.7); Neutrophils % (A) 65 %; Platelet Count 362 k/uL (150-450); RDW 13.2 % (11.5-15.5); WBC 7.1 k/uL (3.8-10.6)
--- NOTE | 2020-11-11 14:57 | US ---
EXAMINATION TYPE: US transvaginal DATE OF EXAM: 11/11/2020 COMPARISON: NONE CLINICAL HISTORY: irregular bleeding, pain, IUD present. IUD placed in April TECHNIQUE: Transvaginal (TV). Transabdominal sonographic images of the pelvis were acquired. Trans vaginal sonographic images were medically necessary to better assess the following anatomy: Date of LMP: 11/06/20 EXAM MEASUREMENTS: Uterus: 5.8x3.8x4.0 cm Endometrial Stripe: 0.3 cm Right Ovary: 2.8x2.0x3.1 cm Left Ovary: 2.7x2.4x2.3 cm 1. Uterus: Retroverted 2. Endometrium: wnl 3. Right Ovary: wnl 4. Left Ovary: wnl Spectral, color and waveform doppler imaging shows arterial and venous flow within the ovaries. 5. Bilateral Adnexa: wnl 6. Posterior cul-de-sac: wnl IUD Arms seen in the CX. IUD echo not definitively seen in the fundal portion of the endometrium on t he provided images IMPRESSION: IUD as described.
--- NOTE | 2020-11-11 15:52 | ED ---
Female Urogenital HPI - General Chief complaint: Vaginal Bleeding Stated complaint: Vaginal Bleeding/Migraine Time Seen by Provider: 11/11/20 12:43 Source: patient, RN notes reviewed Mode of arrival: ambulatory Limitations: no limitations - History of Present Illness Initial comments: Patient is a 20-year-old female presenting to the emergency Department with complaints of irregular menstrual bleeding as well as abdominal cramping that started today. Patient states she had an IUD placed and April, ever since and she's been having regular normal periods every month, with heavy flow lasting for 2 days and then very light spotting for the next 2-3 days. She states she just finished her period 2 days ago, yesterday she had no vaginal bleeding, tod ay at work she started having some lower abdominal cramping, she went to use the restroom and passed 3 large clots. She started having some vaginal bleeding. Patient got concerned and came to the ER for evaluation. She denies any fevers or chills, no dysuria or increased frequency. She does admit to prior history of 2 C-sections, no other abdominal surgeries. Patient has been having regular bowel movements. She has no further complaints at this time. Upon arrival to the ER her vitals are stable. - Related Data Home Medications Medication Instructions Recorded Confirmed Dextroamphetamine/Amphetamine 20 mg PO TID 04/01/19 04/01/19 [Adderall] Sertraline HCl [Zoloft] 100 mg PO DAILY 04/01/19 04/01/19 busPIRone HCl [Buspar] 10 mg PO DAILY 04/01/19 04/01/19 Previous Rx's Medication Instructions Recorded Hydrocodone/Acetaminophen [[place] 1 tab PO Q6HR PRN #10 tab 04/02/19 5-325] Allergies Allergy/AdvReac Type Severity Reaction Status Date / Time No Known Allergies Allergy Verified 11/11/20 12:29 Review of Systems ROS Statement: Those systems with pertinent positive or pertinent negative responses have been documented in the HPI. ROS Other: All systems not noted in ROS Statement are negative. Past Medical History Past Medical History: No Reported History Additional Past Medical History / Comment(s): seizures onset at 1 yrs old. last seizure 18 mos ago. no meds at this time. Pt hx of narcolepsy. Is on Adderal and Zoloft per Dr. Delmi Mcmanus of [place], [place]. CREDIT VERIFICATION CLERK also ordered Busporin for PP Depression but pt never took med. On admission to [facility] from ED pt was found to have irreg heartrate per auscultation. Also found to have 3+ reflexes bilat patellar. no clonus present. denies headache, blurred vision, no edema present. no hx of hypertension with or . History of Any Multi-Drug Resistant Organisms: None Reported Past Surgical History: No Surgical Hx Reported, Section Additional Past Surgical History / Comment(s): c/s x 2 2017 and 03/11/19. Tonsils in 2006 approx. Past Anesthesia/Blood Transfusion Reactions: No Reported Reaction Past Psychological History: No Psychological Hx Reported Smoking Status: Current every day smoker Past Alcohol Use History: Occasional Past Drug Use History: None Reported - Past Family History Mother Family Medical History: Coronary Artery Disease (CAD) Father Family Medical History: Coronary Artery Disease (CAD) General Exam - General Exam Comments Initial Comments: GENERAL: Patient is well-developed and well-nourished. Patient is nontoxic and in no acute distress. HEAD: Atraumatic, normocephalic. EYES: Pupils equal round and reactive to light, extraocular movements intact, sclera anicteric, conjunctiva are normal. Eyelids were unremarkable. ENT: Moist mucous membranes. NECK: Normal range of motion, supple without lymphadenopathy or JVD. LUNGS: Unlabored respirations. Breath sounds clear to auscultation bilaterally and equal. No wheezes rales or rhonchi. HEART: Regular rate and rhythm without murmurs, rubs or gallops. ABDOMEN: Soft, tenderness of the suprapubic region, no other areas of tenderness, normoactive bowel sounds. No guarding, no rebound. No masses appreciated. MUSCULOSKELETAL: Normal extremities with adequate strength and normal range of motion, no pitting or edema. No clubbing or cyanosis. NEUROLOGICAL: Patient is alert and oriented x 3. Motor and sensory are also intact. Cranial nerves II through XII grossly intact. Symmetrical smile. Normal speech, normal gait. PSYCH: Normal mood, normal affect. SKIN: Warm, Dry, normal turgor, no rashes or lesions noted. Limitations: no limitations External exam: Present: normal external exam Speculum exam: Present: other (Patient's IUD was seen partially sitting outside of the cervix. I did remove this without incident. No active bleeding.). Absent: cervical discharge, vaginal bleeding Course Vital Signs 11/11/20 11/11/20 12:29 16:00 Temperature 98.2 F 98.1 F Pulse Rate 101 H 70 Respiratory 18 18 Rate Blood Pressure 135/89 123/83 O2 Sat by Pulse 99 99 Oximetry Procedures - Procedures Initial comment: Patient's IUD was partially sitting outside of the cervix, I did remove this without incident. She has no active bleeding. She tolerated this very well. Medical Decision Making - Medical Decision Making Patient is a 20-year-old female here for irregular menstrual bleeding that started today as well as increased abdominal cramping. She had IUD placed in April at [facility]. SHEENT labs are all within normal limits, urine shows no evidence of infection, hCG is not detected. I didn't ultrasound t ransvaginally, this is showing IUD arm seen in the cervix, IUD does not seem to be definitively in the fundal position of the endometrium. On vaginal exam, I did see a part of the IUD sitting outside of the cervix, I did remove this without incident since this was not in correct position. I recommended following up with her CREDIT VERIFICATION CLERK. She is agreeable to this. She is stable for discharge. Return parameters were discussed with her and she verbalized understanding. Case discussed with Dr. Myrick. - Lab Data Result diagrams: 11/11/20 13:33 11/11/20 13:33 Lab Results 11/11/20 11/11/20 11/11/20 Range/Units 13:32 13:32 13:33 WBC 7.1 (3.8-10.6) k/uL RBC 5.00 (3.80-5.40) m/uL Hgb 15.2 (11.4-16.0) gm/dL Hct 44.5 (34.0-46.0) % MCV 89.1 (80.0-100.0) fL MCH 30.4 (25.0-35.0) pg MCHC 34.2 (31.0-37.0) g/dL RDW 13.2 (11.5-15.5) % Plt Count 362 (150-450) k/uL MPV 6.7 Neutrophils % 65 % Lymphocytes % 24 % Monocytes % 7 % Eosinophils % 1 % Basophils % 1 % Neutrophils # 4.6 (1.3-7.7) k/uL Lymphocytes # 1.7 (1.0-4.8) k/uL Monocytes # 0.5 (0-1.0) k/uL Eosinophils # 0.1 (0-0.7) k/uL Basophils # 0.0 (0-0.2) k/uL Sodium (137-145) mmol/L Potassium (3.5-5.1) mmol/L Chloride (98-107) mmol/L Carbon Dioxide (22-30) mmol/L Anion Gap mmol/L BUN (7-17) mg/dL Creatinine (0.52-1.04) mg/dL Est GFR (CKD-EPI)AfAm (>60 ml/min/1.73 sqM) Est GFR (CKD-EPI)NonAf (>60 ml/min/1.73 sqM) Glucose (74-99) mg/dL Calcium (8.4-10.2) mg/dL Total Bilirubin (0.2-1.3) mg/dL AST (14-36) U/L ALT (4-34) U/L Alkaline Phosphatase (38-126) U/L Total Protein (6.3-8.2) g/dL Albumin (3.5-5.0) g/dL Urine Color Yellow Urine Appearance Cloudy H (Clear) Urine pH 6.0 (5.0-8.0) Ur Specific Farrell 1.033 (1.001-1.035) Urine Protein 1+ H (Negative) Urine Glucose (UA) Negative (Negative) Urine Ketones Trace H (Negative) Urine Blood Small H (Negative) Urine Nitrite Negative (Negative) Urine Bilirubin Negative (Negative) Urine Urobilinogen 2.0 (<2.0) mg/dL Ur Leukocyte Esterase Negative (Negative) Urine RBC 1 (0-5) /hpf Urine WBC 2 (0-5) /hpf Ur Squamous Epith Cells 5 H (0-4) /hpf Calcium Oxalate Crystal Moderate H (None) /hpf Urine Mucus Few H (None) /hpf Urine HCG, Qual Not Detected (Not Detectd) 11/11/20 Range/Units 13:33 WBC (3.8-10.6) k/uL RBC (3.80-5.40) m/uL Hgb (11.4-16.0) gm/dL Hct (34.0-46.0) % MCV (80.0-100.0) fL MCH (25.0-35.0) pg MCHC (31.0-37.0) g/dL RDW (11.5-15.5) % Plt Count (150-450) k/uL MPV Neutrophils % % Lymphocytes % % Monocytes % % Eosinophils % % Basophils % % Neutrophils # (1.3-7.7) k/uL Lymphocytes # (1.0-4.8) k/uL Monocytes # (0-1.0) k/uL Eosinophils # (0-0.7) k/uL Basophils # (0-0.2) k/uL Sodium 140 (137-145) mmol/L Potassium 3.8 (3.5-5.1) mmol/L Chloride 103 (98-107) mmol/L Carbon Dioxide 26 (22-30) mmol/L Anion Gap 11 mmol/L BUN 8 (7-17) mg/dL Creatinine 0.87 (0.52-1.04) mg/dL Est GFR (CKD-EPI)AfAm >90 (>60 ml/min/1.73 sqM) Est GFR (CKD-EPI)NonAf >90 (>60 ml/min/1.73 sqM) Glucose 95 (74-99) mg/dL Calcium 9.8 (8.4-10.2) mg/dL Total Bilirubin 0.5 (0.2-1.3) mg/dL AST 22 (14-36) U/L ALT 11 (4-34) U/L Alkaline Phosphatase 89 (38-126) U/L Total Protein 8.0 (6.3-8.2) g/dL Albumin 4.8 (3.5-5.0) g/dL Urine Color Urine Appearance (Clear) Urine pH (5.0-8.0) Ur Specific Farrell (1.001-1.035) Urine Protein (Negative) Urine Glucose (UA) (Negative) Urine Ketones (Negative) Urine Blood (Negative) Urine Nitrite (Negative) Urine Bilirubin (Negative) Urine Urobilinogen (<2.0) mg/dL Ur Leukocyte Esterase (Negative) Urine RBC (0-5) /hpf Urine WBC (0-5) /hpf Ur Squamous Epith Cells (0-4) /hpf Calcium Oxalate Crystal (None) /hpf Urine Mucus (None) /hpf Urine HCG, Qual (Not Detectd) Disposition Clinical Impression: Vaginal bleeding, Malpositioned IUD, Abdominal cramping Disposition: HOME SELF-CARE Condition: Stable Instructions (If sedation given, give patient instructions): Dysfunctional Uterine Bleeding (ED) Additional Instructions: Please return to the Emergency Department if symptoms worsen or any other concerns. Recommend alternating between Tylenol and ibuprofen for cramping. Additional bleeding/spotting will be normal after removal. Please follow-up with your CREDIT VERIFICATION CLERK or family doctor for additional family planning resources. Is patient prescribed a controlled substance at d/c from ED?: No Referrals: Silviano Cunningham DO [Primary Care Provider] - 1-2 days Time of Disposition: 15:52
[2020-11-11 16:03] VITALS: BP 123/83; PULSE 70; TEMP 98.1
== END 2020-11-11 16:16 | disposition home or self-care (01) ==
LOC: EC 12:28
DX: T83.32XA Displacement of intrauterine contraceptive device, initial encounter (principal); N93.9 Abnormal uterine and vaginal bleeding, unspecified; F17.200 Nicotine dependence, unspecified, uncomplicated
CPT/HCPCS: 99284; 96374; 96361; 36415; 80053; 85025; 81001; 81025; 93975; 76830; J1885

== ENCOUNTER 2022-02-04 21:21 | Emergency (ER) | payer BC, OTHER ==
[2022-02-04] MEDS ORDERED: SODIUM CHLORIDE 0.9% 1,000 ML IV STA (21:25)
[2022-02-04] MEDS ORDERED: diphenhydrAMINE 50 MG/ML 1 ML VIAL IVP STA (21:26)
[2022-02-04] MEDS ORDERED: METOCLOPRAMIDE 5 MG/ML 2 ML VIAL IVP STA (21:29)
[2022-02-04] MEDS ORDERED: PYRIDOXINE 100 MG/ML 1 ML VIAL IVP SCH (21:30)
--- NOTE | 2022-02-04 21:34 | ED ---
Nausea/Vomiting/Diarrhea HPI - General Chief complaint: Nausea/Vomiting/Diarrhea Stated complaint: Vomiting, 10 wks Time Seen by Provider: 02/04/22 21:24 Source: patient, RN notes reviewed Mode of arrival: ambulatory Limitations: no limitations - History of Present Illness Initial comments: This is a pleasant 21-year-old female who is approximately 10 weeks based on her last menstrual period she presents to the emergency room today c omplaining of several episodes of nausea and vomiting. Patient states her urination has diminished. Patient feels as if she is dehydrated. Patient is getting some abdominal cramping but that is in the epigastric area. No pelvic cramping. No vaginal bleeding or vaginal discharge. No dysuria. Patient is A0. Cutter Tender is Dr. Becerra in [facility] lit hematemesis or coffee-ground emesis. No diarrhea. No melena or hematochezia. Patient has no history of immunosuppression. No cardiac history or diabetes. Patient has had no medications at home. Vomiting started about 2 days ago. Patient states she does have a history of irregular menses. No headache, no fever or chills, no changes in vision or hearing, no sore throat or difficulty with speech, no neck pain, no chest pain or shortness of breath, no abdominal pain,, no changes in urination or bowel movements, no numbness or tingling, no extremity pain, no skin rashes or lesions. Past medical, surgical, social, and family history reviewed. MD complaint: nausea, vomiting - Related Data Home Medications Medication Instructions Recorded Confirmed Dextroamphetamine/Amphetamine 20 mg PO TID 04/01/19 04/01/19 [Adderall] Sertraline HCl [Zoloft] 100 mg PO DAILY 04/01/19 04/01/19 busPIRone HCl [Buspar] 10 mg PO DAILY 04/01/19 04/01/19 Previous Rx's Medication Instructions Recorded Hydrocodone/Acetaminophen [[place] 1 tab PO Q6HR PRN #10 tab 04/02/19 5-325] Doxylamine Succinate/Vit B6 2 tab PO HS PRN #30 tab 02/04/22 [[place] 10-10 mg Tablet] Allergies Allergy/AdvReac Type Severity Reaction Status Date / Time No Known Allergies Allergy Verified 02/04/22 21:24 Review of Systems ROS Statement: Those systems with pertinent positive or pertinent negative responses have been documented in the HPI. ROS Other: All systems not noted in ROS Statement are negative. Past Medical History Past Medical History: No Reported History Additional Past Medical History / Comment(s): seizures onset at 1 yrs old. last seizure 18 mos ago. no meds at this time. Pt hx of narcolepsy. Is on Adderal and Zoloft per Dr. Delmi Mcmanus of [place], [place]. AUTOMOTIVE SERVICE DIRECTOR also ordered Busporin for PP Depression but pt never took med. On admission to [facility] from ED pt was found to have irreg heartrate per auscultation. Also found to have 3+ reflexes bilat patellar. no clonus present. denies headache, blurred vision, no edema present. no hx of hypertension with or . History of Any Multi-Drug Resistant Organisms: None Reported Past Surgical History: Section (2), Cholecystectomy Additional Past Surgical History / Comment(s): c/s x 2 2017 and 03/11/19. Tonsils in 2005 approx. Past Anesthesia/Blood Transfusion Reactions: No Reported Reaction Past Psychological History: No Psychological Hx Reported Smoking Status: Current every day smoker Past Alcohol Use History: Occasional Past Drug Use History: None Reported - Past Family History Mother Family Medical History: Coronary Artery Disease (CAD) Father Family Medical History: Coronary Artery Disease (CAD) General Exam - General Exam Comments Initial Comments: Patient tachycardic. Mildly dry mucous membranes. Does not appear to be ill or toxic. Capillary refill less than 2 seconds. No mottling. No rash or lesions. Limitations: no limitations General appearance: alert, in no apparent distress Head exam: Present: atraumatic, normocephalic, normal inspection Eye exam: Present: normal appearance, PERRL, EOMI. Absent: scleral icterus, conjunctival injection, periorbital swelling ENT exam: Present: mucous membranes dry (Mild), mucous membranes moist, normal external ear exam, other (Throat is clear. No tonsillar adenopathy or exudate) Neck exam: Present: normal inspection, full ROM. Absent: tenderness, meningismus, lymphadenopathy Respiratory exam: Present: normal lung sounds bilaterally. Absent: respiratory distress, wheezes, rales, rhonchi, stridor Cardiovascular Exam: Present: normal rhythm, tachycardia, normal heart sounds. Absent: systolic murmur, diastolic murmur, rubs, gallop, clicks GI/Abdominal exam: Present: soft, hyperactive bowel sounds. Absent: distended, tenderness, guarding, rebound, rigid Extremities exam: Present: normal inspection, full ROM, normal capillary refill. Absent: tenderness, pedal edema, joint swelling, calf tenderness Back exam: Present: normal inspection Neurological exam: Present: alert, oriented X3, CN II-XII intact Psychiatric exam: Present: normal affect, normal mood Skin exam: Present: warm, dry, intact, normal color. Absent: rash Course Vital Signs 02/04/22 02/04/22 21:23 23:33 Temperature 98 F Pulse Rate 114 H 86 Respiratory 20 16 Rate Blood Pressure 122/87 101/62 O2 Sat by Pulse 98 100 Oximetry - Reevaluation(s) Reevaluation #1: 02/04/22 23:02 Patient reevaluated, patient states she is feeling much better. Awaiting radiology results. Suspect we can discharge the patient with antiemetics. Reevaluation #2: 02/04/22 23:35 Medical record is reviewed Symptoms are improved here in the emergency department Patient is informed of results and questions answered Patient in no distress Medical Decision Making - Medical Decision Making Was pt. sent in by a medical professional or institution? @ -no Did you speak to anyone other than the patient for history? @ -no Did you review nursing and triage notes? @ -yes Were old charts reviewed? @ -Previous emergency department visits Differential Diagnosis? @ -Hyperemesis gravidarum, gastroenteritis, gastritis, pancreatitis, food poisoning, patient has no abdominal tenderness--does not fit the clinical picture of perforated bowel, bowel obstruction, or appendicitis. Does not fit the clinical picture of cardiopulmonary disease. This is not a definitive list. EKG interpreted by me (3pts min.)? U/S interpreted by me (1pt. min.)? @ -[Obstetrics ultrasound reveals an intrauterine at 6 weeks 1 day with no complicating process. heart rate 115/m. I did interpret this independently by myself. However this is of limited interpretation. Reviewed radiology interpretation.] What testing was considered but not performed? (CT, X-rays, U/S, labs)? Why? @ [I did consider a pelvic examination, however, patient has no vaginal discharge. No vaginal bleeding, no vaginal leakage. I did not believe this would add to the disposition. Patient was doing much better at discharge.] What meds were considered but not given? Why? @ -I did consider Zofran. However the patient did well with metoclopramide, Benadryl, vitamin B6.. Did you discuss the management of the patient with other professionals? @ -ED attending physician Did you reconcile home meds? @ -[none] Was smoking cessation discussed for >3mins.? @ -Patient is a nonsmoker Was critical care preformed (if so, how long)? @ -[none] Were there social determinants of health that impacted care today? How? (Homelessness, low income, unemployed, alcoholism, drug addiction, transportation, low edu. Level, literacy, decrease access to med. care, skilled nursing, rehab)? @ -Patient's grating machine operator is in [place] and not affiliated with this hospital. We'll have her follow up there without fail. Was there de-escalation of care discussed even if they declined? (Discuss DNR or withdrawal of care, Hospice)? @ -Not applicable What co-morbidities impacted this encounter? (DM, HTN, Smoking, COPD, CAD, Cancer, CVA, Hep., AIDS, mental health diagnosis, sleep apnea, morbid obesity)? @ -Currently with symptoms consistent with mild hyperemesis. Was patient admitted / discharged? @ -She was discharged in stable and improved condition. Patient had no evidence of infectious process. There was 1+ ketones on urinalysis. I did consider checking the urine. However I do not feel this would change the treat ment plan. This and the patient home with Zoan, she is to follow-up with her grating machine operator without fail. Patient understands treatment plan. Understands return if all parameters. Undiagnosed new problem with uncertain prognosis? @ -Vomiting related to . Prognosis is seemingly good Drug Therapy requiring intensive monitoring for toxicity (Heparin, Nitro, Insulin, Cardizem)? @ -[none] Were any procedures done? @ -[none] Diagnosis/symptom? @ -Vomiting related to , first trimester Acute, or Chronic, or Acute on Chronic? @ -Acute Uncomplicated (without systemic symptoms) or Complicated (systemic symptoms)? @ -Complicated due to , nausea, and vomiting Side effects of treatment? @ -[none] Exacerbation, Progression, or Severe Exacerbation] @ -[no] Poses a threat to life or bodily function? @ -Unlikely Patient was told to return to the ER for any signs or symptoms worsen. Told to return immediately if any other problems arise. All questions answered. Treatment plan discussed. Patient in agreement Every effort has been made to ensure accuracy of this dictation. However, due to the limitations of electronic medical records and dictation devices, errors in charting still occur. The case was discussed in detail with ED attending physician. Presentation, ollie blake, treatment plan discussed in detail. Supervising physician Dr. Zavala - Lab Data Result diagrams: 02/04/22 22:05 02/04/22 22:05 Lab Results 02/04/22 02/04/22 02/04/22 Range/Units 22:05 22:05 22:05 WBC 10.4 (3.8-10.6) k/uL RBC 4.59 (3.80-5.40) m/uL Hgb 14.1 (11.4-16.0) gm/dL Hct 40.3 (34.0-46.0) % MCV 87.8 (80.0-100.0) fL MCH 30.6 (25.0-35.0) pg MCHC 34.9 (31.0-37.0) g/dL RDW 12.1 (11.5-15.5) % Plt Count 348 (150-450) k/uL MPV 7.3 Neutrophils % 68 % Lymphocytes % 24 % Monocytes % 5 % Eosinophils % 1 % Basophils % 1 % Neutrophils # 7.1 (1.3-7.7) k/uL Lymphocytes # 2.4 (1.0-4.8) k/uL Monocytes # 0.5 (0-1.0) k/uL Eosinophils # 0.1 (0-0.7) k/uL Basophils # 0.1 (0-0.2) k/uL Sodium 139 (137-145) mmol/L Potassium 3.9 (3.5-5.1) mmol/L Chloride 105 (98-107) mmol/L Carbon Dioxide 26 (22-30) mmol/L Anion Gap 8 mmol/L BUN 9 (7-17) mg/dL Creatinine 0.67 (0.52-1.04) mg/dL Est GFR (CKD-EPI)AfAm >90 (>60 ml/min/1.73 sqM) Est GFR (CKD-EPI)NonAf >90 (>60 ml/min/1.73 sqM) Glucose 88 (74-99) mg/dL Calcium 9.1 (8.4-10.2) mg/dL Total Bilirubin 0.5 (0.2-1.3) mg/dL AST 21 (14-36) U/L ALT 16 (4-34) U/L Alkaline Phosphatase 62 (38-126) U/L Total Protein 7.6 (6.3-8.2) g/dL Albumin 4.5 (3.5-5.0) g/dL Urine Color Yellow Urine Appearance Cloudy H (Clear) Urine pH 8.0 (5.0-8.0) Ur Specific [place] 1.026 (1.001-1.035) Urine Protein 1+ H (Negative) Urine Glucose (UA) Negative (Negative) Urine Ketones 1+ H (Negative) Urine Blood Negative (Negative) Urine Nitrite Negative (Negative) Urine Bilirubin Negative (Negative) Urine Urobilinogen 2.0 (<2.0) mg/dL Ur Leukocyte Esterase Negative (Negative) Urine RBC <1 (0-5) /hpf Urine WBC 2 (0-5) /hpf Ur Squamous Epith Cells 8 H (0-4) /hpf Amorphous Sediment Occasional H (None) /hpf Hyaline Casts 1 (0-2) /lpf Urine Mucus Many H (None) /hpf Disposition Clinical Impression: Vomiting , First trimester Disposition: HOME SELF-CARE Condition: Good Instructions (If sedation given, give patient instructions): Hyperemesis Gravidarum (ED) Additional Instructions: Follow-up with your regular physician as directed. Return to the ER immediately if any symptoms worsen, new symptoms arise, or any other problems develop.Clear liquid diet for the next 12 hours. Advance diet as tolerated thereafter.Make sure you follow-up with your grating machine operator on February 06 without fail Is patient prescribed a controlled substance at d/c from ED?: No Referrals: None,Stated [Primary Care Provider] - 1-2 days Time of Disposition: 23:41
[2022-02-04] MEDS: DEXTROSE 5% IN WATER 500 ML IV SCH ×2 (22:13→23:37)
[2022-02-04 22:36] LABS: Basophils # (A) 0.1 k/uL (0-0.2); Basophils % (A) 1 %; Eosinophils # (A) 0.1 k/uL (0-0.7); Eosinophils % (A) 1 %; HCT 40.3 % (34.0-46.0); HGB 14.1 gm/dL (11.4-16.0); Lymphocytes # (A) 2.4 k/uL (1.0-4.8); Lymphocytes % (A) 24 %; MCH 30.6 pg (25.0-35.0); MCHC 34.9 g/dL (31.0-37.0); MCV 87.8 fL (80.0-100.0); Mean Platelet Volume 7.3; Monocytes # (A) 0.5 k/uL (0-1.0); Monocytes % (A) 5 %; Neutrophils # (A) 7.1 k/uL (1.3-7.7); Neutrophils % (A) 68 %; Platelet Count 348 k/uL (150-450); RBC 4.59 m/uL (3.80-5.40); RDW 12.1 % (11.5-15.5); WBC 10.4 k/uL (3.8-10.6)
[2022-02-04 22:41] LABS: Amorphous Sediment,Urine Occasional /hpf; Appearance,Urine Cloudy (Clear); Bilirubin,Urine Negative (Negative); Blood,Urine Negative (Negative); Color,Urine Yellow; Glucose,Urine (UA) Negative (Negative); Hyaline Casts,Urine 1 /lpf (0-2); Ketones,Urine 1+ (Negative); Leukocyte Esterase,Urine Negative (Negative); Mucus,Urine Many /hpf; Nitrite,Urine Negative (Negative); Protein,Urine 1+ (Negative); RBC,Urine <1 /hpf (0-5); Specific Gravity,Urine 1.026 (1.001-1.035); Squamous Epithelial Cell,Urine 8 /hpf (0-4); WBC,Urine 2 /hpf (0-5)
[2022-02-04 22:44] LABS: ALT 16 U/L (4-34); AST 21 U/L (14-36); African American GFR (CKD) >90 (>60 ml/min/1.73 sqM); Albumin 4.5 g/dL (3.5-5.0); Alkaline Phosphatase 62 U/L (38-126); Anion Gap 8 mmol/L; Blood Urea Nitrogen 9 mg/dL (7-17); Calcium 9.1 mg/dL (8.4-10.2); Carbon Dioxide 26 mmol/L (22-30); Chloride 105 mmol/L (98-107); Glucose 88 mg/dL (74-99); Non-African American GFR(CKD) >90 (>60 ml/min/1.73 sqM); Potassium 3.9 mmol/L (3.5-5.1); Sodium 139 mmol/L (137-145); Total Bilirubin 0.5 mg/dL (0.2-1.3); Total Protein 7.6 g/dL (6.3-8.2)
--- NOTE | 2022-02-04 23:22 | US ---
EXAMINATION TYPE: Transabdominal DATE OF EXAM: 02/04/2022 10:49 PM COMPARISON: NONE CLINICAL HISTORY: Vomiting, abdominal cramping, currently . Vomiting and cramping on upper le ft stomach. Pt states her physician gave her the due date off of her LMP. No previous scanning has be en done. EXAM PERFORMED: Transvaginal (TV) and Transabdominal (TA) EXAM MEASUREMENTS: GESTATIONAL AGE / DATING Physician Established: (10 weeks/1 days) EDC: 09/01/22 Dates by LMP: Dates by First Scan: No previous this is first scan Dates by Current Scan for: (6 weeks/1 days) EDC: 09/29/22 MATERNAL ANATOMY Uterus: 8.5 x 6.5 x 5.8cm Right Ovary: 4.0 x 2.0 x 2.4cm Left Ovary: 4.5 x 2.9 x 2.7cm Post CDS / Adnexa: wnl Presence of free fluid: No Presence of corpus luteal cyst: Possible in left ovary measuring 2.5 x 2.4 x 2.2cm Presence of subchorionic bleed: No GESTATION / SURVEY CRL: 0.42cm (6 weeks/1 days) MSD: 1.69 (6 weeks/0 days) Yolk Sac (normal less than 6mm): 2.5mm Heart Rate: 115 bpm Rhythm: Normal IUP: Viable IUP Date of LMP: unknown Beta HcG (if available): n/a IMPRESSION: The ultrasound gestational age is 6 weeks and 1 day. No complicating process seen.
[2022-02-04 23:34] VITALS: PULSE 86
[2022-02-04] MEDS ORDERED: ONDANSETRON 4 MG ODT STARTER PACK 2 TAB BTL PO STA (23:42)
[2022-02-04 23:48] LABS: HCG,Quantitative Serum 43668.6 mIU/mL
[2022-02-05 00:08] VITALS: BP 104/62; RESP 17; TEMP 97.9
== END 2022-02-05 00:08 | disposition home or self-care (01) ==
LOC: EC 21:21
DX: O21.9 Vomiting of pregnancy, unspecified (principal); O99.331 Smoking (tobacco) complicating pregnancy, first trimester; F17.200 Nicotine dependence, unspecified, uncomplicated; Z3A.10 10 weeks gestation of pregnancy
CPT/HCPCS: 36415; 80053; 85025; 81001; 84702; 76801; 76817; 99284; 96374; 96375 ×2; 96361; J1200; J3415; J2765; S0119

== ENCOUNTER 2022-02-17 22:52 | Emergency (ER) | payer OTHER ==
[2022-02-17 23:37] LABS: Appearance,Urine Clear (Clear); Bilirubin,Urine Negative (Negative); Blood,Urine Negative (Negative); Color,Urine Yellow; Glucose,Urine (UA) Negative (Negative); Ketones,Urine Negative (Negative); Leukocyte Esterase,Urine Negative (Negative); Nitrite,Urine Negative (Negative); Protein,Urine Negative (Negative); Urobilinogen,Urine <2.0 mg/dL (<2.0)
[2022-02-18 02:03] VITALS: RESP 16
[2022-02-18] MEDS ORDERED: METOCLOPRAMIDE 5 MG/ML 2 ML VIAL IVP STA (02:18)
[2022-02-18] MEDS ORDERED: diphenhydrAMINE 50 MG/ML 1 ML VIAL IVP STA (02:18)
[2022-02-18] MEDS ORDERED: SODIUM CHLORIDE 0.9% 1,000 ML IV STA (02:18)
--- NOTE | 2022-02-18 02:36 | ED ---
Nausea/Vomiting/Diarrhea HPI - General Chief complaint: Nausea/Vomiting/Diarrhea Stated complaint: 8wks pg vomiting Time Seen by Provider: 02/18/22 02:03 Source: patient, RN notes reviewed Mode of arrival: ambulatory Limitations: no limitations - History of Present Illness Initial comments: This is a 21-year-old female who presents to the emergency department for nausea and vomiting. Patient is 8 weeks and states that her symptoms have been present for the last 2 days. She contacted her SEAFOOD FARMER, who sent in a prescription for Zofran. States that this has not been effective, and she is continuing to have the nausea and vomiting. She does have a history of hyperemesis gravidarum earlier on in the that has since resolved. Her SEAFOOD FARMER is in [place], and she states that she does have a follow-up appointment in the next several days. Denies any sick contacts, vaginal bleeding, or vaginal discharge. She does have minor lower abdominal cramping. Denies any fevers, chills, sore throat, cough, dyspnea, chest pain, pal pitations, diarrhea, back pain, or headaches. MD complaint: nausea, vomiting Onset/Timin -: days(s) Associated Abdominal Pain: Yes Location: diffuse Quality: cramping - Related Data Home Medications Medication Instructions Recorded Confirmed Dextroamphetamine/Amphetamine 20 mg PO TID 04/01/19 04/01/19 [Adderall] Sertraline HCl [Zoloft] 100 mg PO DAILY 04/01/19 04/01/19 busPIRone HCl [Buspar] 10 mg PO DAILY 04/01/19 04/01/19 Previous Rx's Medication Instructions Recorded Hydrocodone/Acetaminophen [Buena 1 tab PO Q6HR PRN #10 tab 04/02/19 5-325] Doxylamine Succinate/Vit B6 2 tab PO HS PRN #30 tab 02/04/22 [[address] 10-10 mg Tablet] Metoclopramide [Reglan] 10 mg PO Q6H PRN #20 tab 02/18/22 Allergies Allergy/AdvReac Type Severity Reaction Status Date / Time No Known Allergies Allergy Verified 02/04/22 21:24 Review of Systems ROS Statement: Those systems with pertinent positive or pertinent negative responses have been documented in the HPI. ROS Other: All systems not noted in ROS Statement are negative. Past Medical History Past Medical History: No Reported History Additional Past Medical History / Comment(s): seizures onset at 1 yrs old. last seizure 18 mos ago. no meds at this time. Pt hx of narcolepsy. Is on Adderal and Zoloft per Dr. Delmi Mcmanus of [place], [place]. SEAFOOD FARMER also ordered Busporin for PP Depression but pt never took med. On admission to [facility] from ED pt was found to have irreg heartrate per auscultation. Also found to have 3+ reflexes bilat patellar. no clonus present. denies headache, blurred vision, no edema present. no hx of hypertension with or . History of Any Multi-Drug Resistant Organisms: None Reported Past Surgical History: Section, Cholecystectomy Additional Past Surgical History / Comment(s): c/s x 2 2017 and 03/11/19. Tonsils in 2005 approx. Past Anesthesia/Blood Transfusion Reactions: No Reported Reaction Past Psychological History: No Psychological Hx Reported Smoking Status: Current every day smoker Past Alcohol Use History: Occasional Past Drug Use History: None Reported - Past Family History Mother Family Medical History: Coronary Artery Disease (CAD) Father Family Medical History: Coronary Artery Disease (CAD) General Exam Limitations: no limitations General appearance: alert, in no apparent distress Head exam: Present: atraumatic, normocephalic, normal inspection Respiratory exam: Present: normal lung sounds bilaterally. Absent: respiratory distress, wheezes, rales, rhonchi, stridor Cardiovascular Exam: Present: regular rate, normal rhythm, normal heart sounds. Absent: systolic murmur, diastolic murmur, rubs, gallop, clicks GI/Abdominal exam: Present: normal bowel sounds Neurological exam: Present: alert, oriented X3, CN II-XII intact Psychiatric exam: Present: normal affect, normal mood Skin exam: Present: warm, dry, intact, normal color. Absent: rash Course Vital Signs 02/17/22 02/18/22 02/18/22 23:07 02:02 04:37 Temperature 97.7 F 98.4 F Pulse Rate 100 82 Respiratory 20 16 16 Rate Blood Pressure 134/87 128/76 O2 Sat by Pulse 98 99 Oximetry Medical Decision Making - Medical Decision Making This is a 21-year-old female who presents the emergency department for abdominal pain, nausea, and vomiting. Was pt. sent in by a medical professional or institution? @ -No Did you speak to anyone other than the patient for history? @ -No Did you review nursing and triage notes? @ -Agree, accurate with regards to the patient's symptoms. Were old charts reviewed? @ -No Differential Diagnosis? @ -Differential Abdominal Pain Women: Appendicitis, Cholecystitis, diverticulosis, ischemic bowel, pancreatitis, hepatitis, UTI, gastroenteritis, AAA, incarcerated hernia, bowel obstruction, constipation, inflammatory bowel, hepatitis, peptic ulcer disease, splenic infarction, perforated viscus, vulvitis, ovarian torsion, PID, kidney stone, placenta abruption, this is not meant to be an all-inclusive list What testing was considered but not performed? (CT, X-rays, U/S, labs)? Why? @ -None What meds were considered but not given? Why? @ -None Did you discuss the management of the patient with other professionals? @ -No Did you reconcile home meds? @ -No Was smoking cessation discussed for >3mins.? @ -No Was critical care preformed (if so, how long)? @ -No Were there social determinants of health that impacted care today? How? (Homelessness, low income, unemployed, alcoholism, drug addiction, transportation, low edu. Level, literacy, decrease access to med. care, prison, rehab)? @ -No Was there de-escalation of care discussed even if they declined? (Discuss DNR or withdrawal of care, Hospice)? @ -No What co-morbidities impacted this encounter? (DM, HTN, Smoking, COPD, CAD, Cancer, CVA, Hep., AIDS, mental health diagnosis, sleep apnea, morbid obesity)? @ - Was patient admitted / discharged? @ -Discharged. She is given IV fluids, Reglan, Benadryl, and vitamin B6. States that her symptoms improved significantly with medication administration. Laboratory studies obtained revealing mild leukocytosis and no other actionable findings. Leukocytosis is likely reactive from the nausea and vomiting and related to the . Cepheid 4-plex is negative for COVID, influenza, and RSV. Prescription for Reglan provided with dosing instructions reviewed. She was advised that the Reglan is a category B medication and while no direct link to harm has been proven, more research is needed before this can be verified as completely safe. Patient expresses understanding and wishes to proceed. I nstructed her to follow-up with her SEAFOOD F[employer]ER as scheduled, sooner if possible, and to be sure and alert them of her ED visit. Drug Therapy requiring intensive monitoring for toxicity (Heparin, Nitro, Insulin, Cardizem)? @ -None Were any procedures done? @ -None Diagnosis/symptom? @ -Gastroenteritis Acute, or Chronic, or Acute on Chronic? @ -Acute Uncomplicated (without systemic symptoms) or Complicated (systemic symptoms)? @ -Uncomplicated Side effects of treatment? @ -None Exacerbation, Progression, or Severe Exacerbation] @ -Not applicable Poses a threat to life or bodily function? @ -The nausea and vomiting are currently impacting her bodily function due to its severity. Return precautions reviewed in depth, the patient is instructed to return to the emergency department with any new, worsening, or concerning symptoms. Patient verbalized understanding. This case was discussed in detail with the attending ED physician. Presentation, findings, and treatment plan discussed in detail as well. - Lab Data Result diagrams: 02/18/22 02:29 02/18/22 02:29 Lab Results 02/17/22 02/18/22 02/18/22 Range/Units 23:10 02:29 02:29 WBC 12.8 H (3.8-10.6) k/uL RBC 4.43 (3.80-5.40) m/uL Hgb 13.4 (11.4-16.0) gm/dL Hct 38.8 (34.0-46.0) % MCV 87.5 (80.0-100.0) fL MCH 30.3 (25.0-35.0) pg MCHC 34.6 (31.0-37.0) g/dL RDW 12.6 (11.5-15.5) % Plt Count 347 (150-450) k/uL MPV 7.3 Neutrophils % 69 % Lymphocytes % 22 % Monocytes % 5 % Eosinophils % 0 % Basophils % 1 % Neutrophils # 8.8 H (1.3-7.7) k/uL Lymphocytes # 2.8 (1.0-4.8) k/uL Monocytes # 0.6 (0-1.0) k/uL Eosinophils # 0.1 (0-0.7) k/uL Basophils # 0.1 (0-0.2) k/uL Sodium 137 (137-145) mmol/L Potassium 4.1 (3.5-5.1) mmol/L Chloride 105 (98-107) mmol/L Carbon Dioxide 23 (22-30) mmol/L Anion Gap 9 mmol/L BUN 8 (7-17) mg/dL Creatinine 0.68 (0.52-1.04) mg/dL Est GFR (CKD-EPI)AfAm >90 (>60 ml/min/1.73 sqM) Est GFR (CKD-EPI)NonAf >90 (>60 ml/min/1.73 sqM) Glucose 88 (74-99) mg/dL Calcium 9.2 (8.4-10.2) mg/dL Total Bilirubin 0.3 (0.2-1.3) mg/dL AST 29 (14-36) U/L ALT 42 H (4-34) U/L Alkaline Phosphatase 69 (38-126) U/L Total Protein 7.4 (6.3-8.2) g/dL Albumin 4.3 (3.5-5.0) g/dL Urine Color Yellow Urine Appearance Clear (Clear) Urine pH 7.0 (5.0-8.0) Ur Specific [place] 1.020 (1.001-1.035) Urine Protein Negative (Negative) Urine Glucose (UA) Negative (Negative) Urine Ketones Negative (Negative) Urine Blood Negative (Negative) Urine Nitrite Negative (Negative) Urine Bilirubin Negative (Negative) Urine Urobilinogen <2.0 (<2.0) mg/dL Ur Leukocyte Esterase Negative (Negative) Influenza Type A (PCR) (Not Detectd) Influenza Type B (PCR) (Not Detectd) RSV (PCR) (Not Detectd) SARS-CoV-2 (PCR) (Not Detectd) 02/18/22 Range/Units 02:29 WBC (3.8-10.6) k/uL RBC (3.80-5.40) m/uL Hgb (11.4-16.0) gm/dL Hct (34.0-46.0) % MCV (80.0-100.0) fL MCH (25.0-35.0) pg MCHC (31.0-37.0) g/dL RDW (11.5-15.5) % Plt Count (150-450) k/uL MPV Neutrophils % % Lymphocytes % % Monocytes % % Eosinophils % % Basophils % % Neutrophils # (1.3-7.7) k/uL Lymphocytes # (1.0-4.8) k/uL Monocytes # (0-1.0) k/uL Eosinophils # (0-0.7) k/uL Basophils # (0-0.2) k/uL Sodium (137-145) mmol/L Potassium (3.5-5.1) mmol/L Chloride (98-107) mmol/L Carbon Dioxide (22-30) mmol/L Anion Gap mmol/L BUN (7-17) mg/dL Creatinine (0.52-1.04) mg/dL Est GFR (CKD-EPI)AfAm (>60 ml/min/1.73 sqM) Est GFR (CKD-EPI)NonAf (>60 ml/min/1.73 sqM) Glucose (74-99) mg/dL Calcium (8.4-10.2) mg/dL Total Bilirubin (0.2-1.3) mg/dL AST (14-36) U/L ALT (4-34) U/L Alkaline Phosphatase (38-126) U/L Total Protein (6.3-8.2) g/dL Albumin (3.5-5.0) g/dL Urine Color Urine Appearance (Clear) Urine pH (5.0-8.0) Ur Specific [place] (1.001-1.035) Urine Protein (Negative) Urine Glucose (UA) (Negative) Urine Ketones (Negative) Urine Blood (Negative) Urine Nitrite (Negative) Urine Bilirubin (Negative) Urine Urobilinogen (<2.0) mg/dL Ur Leukocyte Esterase (Negative) Influenza Type A (PCR) Not Detected (Not Detectd) Influenza Type B (PCR) Not Detected (Not Detectd) RSV (PCR) Not Detected (Not Detectd) SARS-CoV-2 (PCR) Not Detected (Not Detectd) Disposition Clinical Impression: Nausea and vomiting Disposition: HOME SELF-CARE Instructions (If sedation given, give patient instructions): Nausea and Vomiting in (ED) Additional Instructions: Return to the emergency department with any new, worsening, or concerning symptoms. You can take the Reglan up to every 6 hours as needed for nausea and vomiting. You can also take this with Benadryl. Slowly advance your diet as tolerated and make sure that you remain well-hydrated. Follow up with your machine captain as scheduled, sooner if possible. Prescriptions: Metoclopramide [Reglan] 10 mg PO Q6H PRN #20 tab PRN Reason: Nausea And Vomiting Is patient prescribed a controlled substance at d/c from ED?: No Referrals: None,Stated [Primary Care Provider] - 1-2 days
[2022-02-18 02:50] LABS: Basophils # (A) 0.1 k/uL (0-0.2); Basophils % (A) 1 %; Eosinophils # (A) 0.1 k/uL (0-0.7); Eosinophils % (A) 0 %; HCT 38.8 % (34.0-46.0); HGB 13.4 gm/dL (11.4-16.0); Lymphocytes # (A) 2.8 k/uL (1.0-4.8); Lymphocytes % (A) 22 %; MCH 30.3 pg (25.0-35.0); MCHC 34.6 g/dL (31.0-37.0); MCV 87.5 fL (80.0-100.0); Mean Platelet Volume 7.3; Monocytes # (A) 0.6 k/uL (0-1.0); Monocytes % (A) 5 %; Neutrophils # (A) 8.8 k/uL (1.3-7.7); Neutrophils % (A) 69 %; Platelet Count 347 k/uL (150-450); RBC 4.43 m/uL (3.80-5.40); RDW 12.6 % (11.5-15.5); WBC 12.8 k/uL (3.8-10.6)
[2022-02-18 03:02] LABS: African American GFR (CKD) >90 (>60 ml/min/1.73 sqM); Albumin 4.3 g/dL (3.5-5.0); Anion Gap 9 mmol/L; Blood Urea Nitrogen 8 mg/dL (7-17); Calcium 9.2 mg/dL (8.4-10.2); Carbon Dioxide 23 mmol/L (22-30); Chloride 105 mmol/L (98-107); Glucose 88 mg/dL (74-99); Non-African American GFR(CKD) >90 (>60 ml/min/1.73 sqM); Potassium 4.1 mmol/L (3.5-5.1); Sodium 137 mmol/L (137-145); Total Protein 7.4 g/dL (6.3-8.2)
[2022-02-18 03:03] LABS: ALT 42 U/L (4-34); AST 29 U/L (14-36); Alkaline Phosphatase 69 U/L (38-126); Total Bilirubin 0.3 mg/dL (0.2-1.3)
[2022-02-18 04:40] VITALS: BP 128/76; PULSE 82; TEMP 98.4
[2022-02-18] MEDS ORDERED: PYRIDOXINE 100 MG/ML 1 ML VIAL IVP SCH (09:00)
== END 2022-02-18 04:42 | disposition home or self-care (01) ==
LOC: EC 22:52
DX: O21.9 Vomiting of pregnancy, unspecified (principal); O99.331 Smoking (tobacco) complicating pregnancy, first trimester; F17.200 Nicotine dependence, unspecified, uncomplicated; Z20.822 Contact with and (suspected) exposure to COVID-19
CPT/HCPCS: 36415; 80053; 85025; 81003; 84702; 87636; 99284; 96374; 96375 ×2; 96361 ×2; J1200; J3415; J2765

== ENCOUNTER 2022-08-19 23:42 | Outpatient (CLI) | payer OTHER ==
[2022-08-20 00:45] VITALS: BP 132/88; PULSE 102; RESP 16; TEMP 97.9
--- NOTE | 2022-08-20 08:41 | P.MSEPDOC ---
Presenting Problems - Arrival Data Date of Arrival on Unit: 08/20/22 Time of Arrival on Unit: 23:40 Mode of Transport: Wheelchair - Complaint OB-Reason for Admission/Chief Complaint: Pain Comment: constant back and hip pain and vomiting Medical History - Information : 3 Para: 2 Term: 2 : 0 Abortions: Spontaneous or Elective: 0 Number of Living Children: 2 - Gestational Age Gestational Age by MADDI (wks/days): 34 Weeks and 4 Days Review of Systems - Review of Systems Constitutional: No problems Breast: No problems ENT: No problems Cardiovascular: No problems Respiratory: No problems Gastrointestinal: No problems Genitourinary: No problems Musculoskeletal: No problems Neurological: No problems Skin: No problems Vital Signs - Temperature Temperature: 97.9 F Temperature Source: Oral - Pulse Pulse Oximetery Pulse Rate: 102 Pulse Assessment Method: Pulse Oximetry - Respirations Respiratory Rate: 16 Oxygen Delivery Method: Room Air - Blood Pressure Right Arm Blood Pressure: 132/88 Blood Pressure Mean: 102 Blood Pressure Source: Automatic Cuff Medical Screen Scoring - Cervical Exam Membranes: Intact - Uterine Contractions Resting: Soft to palpation - Assessment - Baby A Baseline FHR: 130 Heart Rate - NICHD Category: Category I (Normal) NST: Reactive Physician Notification - Physician Notified Physician Notified Date: 08/20/22 Physician Notified Time: 00:28 Physician: Case Torres New Order Received: Yes (d/c home to f/u with dr at [facility]) Maternal Triage Index - Maternal Triage Index Presenting for scheduled procedure w/no complaint: No - Stat/Priority 1 Stat Priority 1: No - Urgent/Priority 2 Urgent Priority 2: Yes Provider Notified: Case Torres Provider Notified Time: 00:28 Criteria Met for Priority 2: constant back and hip pain 09/21 Disposition - Disposition OB Disposition: Discharge to home Discharge Date: 08/20/22 Discharge Time: 00:30 I agree with the RN Medical Screening Exam: Yes Case reviewed; plan agreed upon as documented in EMR&OBIX.: Yes Diagnosis: FALSE LABOR BEFORE 37 COMPLETED WEEKS OF GEST, THIRD TRI (This patient is a 22-year-old female 34-1/2 weeks gestation who presented to labor an d delivery with complaints of back pain. Patient's care is with another physician at another facility and we do not have access to those records. heart tones are category 1. Patient's having rare contractions. At this time it appears to be just discomfort of patient was felt be stable for discharge home follow up with her primary physician. This time there is no evidence of any maternal or compromise. We did recommend the patient in the future presented to her primary obstetricians facility since they have her records and that is where she is getting her care.)
== END 2022-08-20 00:35 | disposition home or self-care (01) ==
LOC: FBPOP 23:42
PROVIDERS: ATTEND Obstetrics & Gynecology
DX: O47.03 False labor before 37 completed weeks of gestation, third trimester (principal); Z3A.37 37 weeks gestation of pregnancy
CPT/HCPCS: 59025; G0463; 99213

== ENCOUNTER 2023-11-14 00:42 | Outpatient (CLI) | payer OTHER ==
[2023-11-14] MEDS: LACTATED RINGERS 1,000 ML IV ONE (01:27)
[2023-11-14] MEDS: ONDANSETRON 4 MG/2 ML VIAL IVP STA (01:27)
[2023-11-14] MEDS: ACETAMINOPHEN IV (For NPO) 1,000 MG in EMPTY BAG 1 BAG IVPB ONE (01:28)
[2023-11-14 02:16] LABS: Appearance,Urine Clear (Clear); Bilirubin,Urine Negative (Negative); Blood,Urine Negative (Negative); Color,Urine Colorless; Glucose,Urine (UA) Negative (Negative); Ketones,Urine Negative (Negative); Leukocyte Esterase,Urine Negative (Negative); Nitrite,Urine Negative (Negative); Protein,Urine Negative (Negative); Specific Gravity,Urine 1.022 (1.001-1.035); Urobilinogen,Urine <2.0 mg/dL (<2.0)
[2023-11-14 02:55] VITALS: BP 123/80; PULSE 90; RESP 16; TEMP 97.2
--- NOTE | 2023-11-29 09:42 | P.MSEPDOC ---
Presenting Problems - Arrival Data Date of Arrival on Unit: 11/14/23 Time of Arrival on Unit: 00:42 Mode of Transport: Wheelchair - Complaint OB-Reason for Admission/Chief Complaint: Pain Comment: Presents with c/o abdominal and low back cramping 5/10 that is constant for an hour and n/v. Medical History - Information : 4 Para: 3 Term: 3 : 0 Abortions: Spontaneous or Elective: 0 Number of Living Children: 3 - Gestational Age Gestational Age by MADDI (wks/days): 25 Weeks and 5 Days Review of Systems - Review of Systems Constitutional: No problems Breast: No problems ENT: No problems Cardiovascular: No problems Respiratory: No problems Gastrointestinal: No problems Genitourinary: No problems Musculoskeletal: No problems Neurological: No problems Skin: No problems Vital Signs - Temperature Temperature: 97.2 F Temperature Source: Temporal Artery Scan - Pulse Pulse Oximetery Pulse Rate: 90 Pulse Assessment Method: Pulse Oximetry - Respirations Respiratory Rate: 16 Oxygen Delivery Method: Room Air O2 Sat by Pulse Oximetry: 98 - Blood Pressure Right Arm Blood Pressure: 123/80 Blood Pressure Mean: 94 Blood Pressure Source: Automatic Cuff Medical Screen Scoring - Assessment - Baby A Baseline FHR: 135 Heart Rate - NICHD Category: Category I (Normal) Physician Notification - Physician Notified Physician Notified Date: 11/14/23 Physician Notified Time: 01:03 Physician: Katelyn Love New Order Received: Yes - Notification Comment Comment: Spoke with Dr. Love. [facility] pt with care in [place] [id number] 25 weeks and 5 days. Presents with c/o abdominal and low back cramping 5/10 that is constamt for an hour and n/v. Abd soft and nontender, no cx on monitor or palpation. FHT 125-150 CAT 1. Order for IV insertion, bolus of LR, IVP zofran, and IVPB ofirmev. RN to send UA if sample appears cloudy or dark. Pt can be d/c home if she feels better following medications. Pt pain unreleived following ofirmev, nausea improved. Discused negative UA results. Order to check cervix and d/c home if closed. PT to follow up with primary OB. Maternal Triage Index - Maternal Triage Index Presenting for scheduled procedure w/no complaint: No - Stat/Priority 1 Stat Priority 1: No - Urgent/Priority 2 Urgent Priority 2: No - Prompt/Priority 3 Prompt Priority 3: No - Non-Urgent/Priority 4 Non-Urgent Priority 4: Yes Criteria Met for Priority 4: Presents with c/o abdominal and low back cramping /10 that is constant for an hour and n/v. Disposition - Disposition OB Disposition: Discharge to home Discharge Date: 11/14/23 Discharge Time: 02:45 I agree with the RN Medical Screening Exam: Yes Case reviewed; plan agreed upon as documented in EMR&OBIX.: Yes Diagnosis: FALSE LABOR BEFORE 37 COMPLETED WEEKS OF GEST, THIRD TRI
== END 2023-11-14 02:45 | disposition home or self-care (01) ==
LOC: FBPOP 00:42
PROVIDERS: ATTEND Obstetrics & Gynecology Obstetrics
CPT/HCPCS: 81003; 96360; 96367; 96375; 99214